=== PATIENT | female | born 1925 | race Caucasian/White ===

== ENCOUNTER 2017-09-04 10:52 | Inpatient (IN) | payer MEDICARE, BC ==
[2017-09-04] MEDS ORDERED: HYDROcodone/APAP 5-325MG 1 EACH TAB PO PRN ×2 (11:48)
--- NOTE | 2017-09-04 12:57 | XR ---
EXAMINATION TYPE: XR Hip Complete RT DATE OF EXAM: 09/04/2017 COMPARISON: NONE HISTORY: Pain TECHNIQUE: 2 views submitted FINDINGS: There is foreshortening of the right femoral neck suspicious for subcapital fracture. Vascular calcif ications noted. Mild diffuse osteopenia. Arthropathy of the hip joint. IMPRESSION: 1. Findings suspicious for subcapital fracture right femoral neck..
[2017-09-04] MEDS ORDERED: ceFAZolin IN SWFI 2 GM/20 ML SYRINGE IVP ONE (13:00)
[2017-09-04 13:30] LABS: Basophils % (A) 1 %; Eosinophils # (A) 0.2 k/uL (0-0.7); Eosinophils % (A) 3 %; HCT 43.4 % (34.0-46.0); HGB 13.3 gm/dL (11.4-16.0); Hypochromasia Slight; Lymphocytes # (A) 1.3 k/uL (1.0-4.8); Lymphocytes % (A) 19 %; MCH 28.9 pg (25.0-35.0); MCHC 30.7 g/dL (31.0-37.0); MCV 94.4 fL (80.0-100.0); Mean Platelet Volume 9.5; Monocytes # (A) 0.4 k/uL (0-1.0); Monocytes % (A) 6 %; Neutrophils # (A) 4.9 k/uL (1.3-7.7); Neutrophils % (A) 70 %; Platelet Count 154 k/uL (150-450); RDW 13.3 % (11.5-15.5)
[2017-09-04 13:43] LABS: Anion Gap 12 mmol/L; Blood Urea Nitrogen 18 mg/dL (7-17); Carbon Dioxide 24 mmol/L (22-30); Chloride 105 mmol/L (98-107); Glucose 94 mg/dL (74-99); Potassium 4.3 mmol/L (3.5-5.1); Sodium 141 mmol/L (137-145)
[2017-09-04 13:53] LABS: Prothrombin Time 9.9 sec (9.0-12.0)
[2017-09-04 14:13] LABS: Partial Thromboplastin Time 21.4 sec (22.0-30.0)
--- NOTE | 2017-09-04 14:23 | P.HPOR ---
History of Present Illness H&P Date: 09/04/17 Chief Complaint: Right hip She states she was carrying out her garbage yesterday when she fell to her right side. She developed right hip and groin pain immediately. The pain has continued. She's had pain with ambulating and weightbearing. She denies radicular symptoms including numbness, tingling. She denies calf pain, fever, chills, chest pain or shortness of breath. She denies LOC, dizziness, headaches , slurred speech or other. Review of Systems All systems: negative Constitutional: Denies chills, Denies fever Eyes: denies blurred vision, denies pain Ears, nose, mouth and throat: Denies headache, Denies sore throat Cardiovascular: Denies chest pain, Denies shortness of breath Respiratory: Denies cough Gastrointestinal: Denies abdominal pain, Denies diarrhea, Denies nausea, Denies vomiting Genitourinary: Denies dysuria, Denies hematuria Musculoskeletal: Denies myalgias Integumentary: Denies pruritus, Denies rash Neurological: Denies numbness, Denies weakness Psychiatric: Denies anxiety, Denies depression Endocrine: Denies fatigue, Denies weight change Past Medical History Past Medical History: Cancer, Osteoarthritis (OA) Additional Past Medical History / Comment(s): Pt denied hyperlipidemia but zocor is on her med list, CHB with pacer, R breast cancer with mastectomy, cervical pain (chronic), arthritis mostly in bilateral hands, PUD with surgical repair, treated in the s for tuberculosis. History of Any Multi-Drug Resistant Organisms: None Reported Past Surgical History: Bladder Surgery, Breast Surgery, Hysterectomy, Pacemaker Additional Past Surgical History / Comment(s): R mastectomy, pacemaker generator change 2011, bilateral cataract removal, exploratory laparotomy with stomach ulcer repair, bladder suspension. Past Anesthesia/Blood Transfusion Reactions: No Reported Reaction Type of Cardiac Device: Permanent Pacemaker Device Placement Date:: unknown insertion date, had gen change in 2011 Smoking Status: Former smoker - Past Family History Mother Family Medical History: No Reported History Additional Family Medical History / Comment(s): Mother was healthy and lived to be 94 yrs old. Father History Unknown: Yes Additional Family Medical History / Comment(s): Father liked to drink beer. Daughter(s) Family Medical History: Cancer Additional Family Medical History / Comment(s): Daughter of lung cancer at the age of 61 yrs. She was a smoker. Son(s) Family Medical History: Myocardial Infarction ([place]) Additional Family Medical History / Comment(s): Son of a [place] at the age of 62 yrs. Medications and Allergies Home Medications Medication Instructions Recorded Confirmed Type Aspirin 81 mg PO DAILY 09/04/17 09/04/17 History Carboxymethylcellulose Sodium 1 drop BOTH EYES DAILY 09/04/17 09/04/17 History [Refresh Tears] Cetirizine HCl [Zyrtec] 10 mg PO DAILY 09/04/17 09/04/17 History Gabapentin [Neurontin] 100 mg PO TID 09/04/17 09/04/17 History Multivitamins, Thera [Multivitamin 1 tab PO DAILY 09/04/17 09/04/17 History (formulary)] Simvastatin [Zocor] 20 mg PO HS 09/04/17 09/04/17 History Allergies Allergy/AdvReac Type Severity Reaction Status Date / Time No Known Allergies Allergy Unverified 09/04/17 11:31 Physical Examination Inspection of the right lower extremity shows no wounds or lacerations. There is no obvious deformity. Range of motion of the hip is not tested due to the hip fracture. Neurovascular status is grossly intact with motor and sensation throughout the right lower extremity. She has painless range of motion of the knee, ankle, foot and toes. The calf is soft and nontender. 2+ dorsalis pedis pulse and less than 2 second capillary refill is present. Results x-rays of the right hip show a subcapital femoral neck fracture with impaction. There is minimal displacement. - Labs Labs: Abnormal Lab Results - Last 24 Hours (Table) 09/04/17 09/04/17 Range/Units 13:06 13:06 MCHC 30.7 L (31.0-37.0) g/dL BUN 18 H (7-17) mg/dL H & H 09/04/17 Range/Units 13:06 Hgb 13.3 (11.4-16.0) gm/dL Hct 43.4 (34.0-46.0) % Result Diagrams: 09/04/17 13:06 09/04/17 13:06 - Diagnostic results Hip x-ray: report reviewed, image reviewed Assessment and Plan (1) Closed right hip fracture Narrative/Plan: We have requested medical clearance with plans for proceeding with surgical intervention, Monday09/05/17 including a right hip hemiarthroplasty. The surgical procedure was reviewed with patient and her family by Dr. Mandujano. The risks and benefits of the surgery were explained. The patient desires to proceed. She has been placed nothing by mouth after midnight. Labs, EKG and chest x-ray also has been ordered. The procedure and consent has been ordered, and boarding time has been confirmed for tomorrow. She'll likely need placement postoperatively. Current Visit: Yes Status: Acute Priority: Medium Code(s): S72.001A - FRACTURE OF UNSP PART OF NECK OF RIGHT FEMUR, INIT SNOMED Code(s): 007089675 Time with Patient: Less than 30
--- NOTE | 2017-09-04 16:33 | XR ---
EXAMINATION TYPE: XR chest 1V portable DATE OF EXAM: 09/04/2017 COMPARISON: Prior chest x-ray 01/19/2012 HISTORY: Preop TECHNIQUE: Single frontal view of the chest is obtained. FINDINGS: Pacemaker is present in the left pectoral region, there are leads in the right atrium and ventricle. Surgical clips are present at the gastroesophageal junction level. No evident airspace dis ease, pneumothorax, or pleural effusion. Technique is apical lordotic and rotated. Cardiac mediastina l silhouette, pulmonary vascularity and barb are stable. The aorta is dense. IMPRESSION: No acute process.
--- NOTE | 2017-09-04 17:35 | ECHOF ---
Referral Reason:LVF MEASUREMENTS -------- HEIGHT: 152.4 cm WEIGHT: 64.9 kg BP: 130/50 IVSd: 1.2 cm (0.6 - 1.1) LVIDd: 3.4 cm (3.9 - 5.3) LVPWd: 1.2 cm (0.6 - 1.1) IVSs: 1.4 cm LVIDs: 3.2 cm LVPWs: 1.4 cm LAESV Index (A-L): 30.32 ml/m Ao Diam: 2.8 cm (2.0 - 3.7) AV Cusp: 1.1 cm (1.5 - 2.6) LA Diam: 3.2 cm (2.7 - 3.8) MV EXCURSION: 14.230 mm (> 18.000) MV EF SLOPE: 129 mm/s (70 - 150) EPSS: 0.3 cm MV E Jimi: 0.57 m/s MV DecT: 253 ms MV A Jimi: 1.22 m/s MV E/A Ratio: 0.46 RAP: 5.00 mmHg RVSP: 50.84 mmHg FINDINGS -------- Paced rhythm. This was a technically adequate study. The left ventricular size is normal. There is mild concentric left ventricular hypertrophy. Overa ll left ventricular systolic function is low-normal with, an EF between 50 - 55 %. The right ventricle is normal in size. LA is midly dilated 29-33ml/m2. The right atrial size is normal. There is mild aortic valve sclerosis. There is no evidence of aortic regurgitation. Mild mitral annular calcification present. Mild mitral regurgitation is present. Mild tricuspid regurgitation present. There is moderate pulmonary hypertension. The right ventric ular systolic pressure, as measured by Doppler, is 50.84mmHg. Trace/mild (physiologic) pulmonic regurgitation. The aortic root size is normal. There is no pericardial effusion. CONCLUSIONS -------- 1. The left ventricular size is normal. 2. There is mild concentric left ventricular hypertrophy. 3. Overall left ventricular systolic function is low-normal with, an EF between 50 - 55 %. 4. LA is midly dilated 29-33ml/m2. 5. There is mild aortic valve sclerosis. 6. Mild mitral annular calcification present. 7. Mild mitral regurgitation is present. 8. Mild tricuspid regurgitation present. 9. There is moderate pulmonary hypertension. 10. The right ventricular systolic pressure, as measured by Doppler, is 50.84mmHg. 11. Trace/mild (physiologic) pulmonic regurgitation. 12. The aortic root size is normal. 13. There is no pericardial effusion. SUPPORT TEAM ASS[employer]: Krystin Jimenez RDCS
[2017-09-04 19:15] LABS: Appearance,Urine Cloudy (Clear); Bacteria,Urine Moderate /hpf; Bilirubin,Urine Negative (Negative); Blood,Urine Negative (Negative); Color,Urine Yellow; Glucose,Urine (UA) Negative (Negative); Hyaline Casts,Urine 1 /lpf (0-2); Ketones,Urine Negative (Negative); Leukocyte Esterase,Urine Negative (Negative); Mucus,Urine Rare /hpf; Nitrite,Urine Negative (Negative); PH, Urine 6.5 (5.0-8.0); Protein,Urine Trace (Negative); RBC,Urine 5 /hpf (0-5); Specific Gravity,Urine 1.012 (1.001-1.035); Squamous Epithelial Cell,Urine 3 /hpf (0-4); WBC,Urine 2 /hpf (0-5)
[2017-09-04] MEDS: DEXTROSE 5%-0.45% NACL 1,000 ML IV SCH (20:22)
--- NOTE | 2017-09-04 20:29 | P.CONS ---
History of Present Illness - Reason for Consult Consult date: 09/04/17 Medical management preop clearance Requesting physician: Lalit Mandujano - Chief Complaint Right hip fracture subcapital - History of Present Illness This is an 89-year-old pleasant lady patient of Dr. Kevin. She has underlying history of hyperlipidemia, right breast cancer with mastectomy, also arthritis, osteoporosis, treated tuberculosis in [id number], pacemaker placement patient is not aware off the reasoning for the pacemaker, known history of PUD with prior gastric ulcer repair admitted as an outpatient direct admit from the office of Dr. Mandujano. Apparently patient was doing well at home until she fell down from 09/03/2017 while getting out the garbage. Patient complained of pain when she fell down on the right hip, she did not seek any ER intervention at that time and saw Dr. Mandujano in the office on 09/04/2016. The daughter works in the office of Dr. Mandujano and when an x-ray was done she had a subcapital hip fracture for which now she is admitted for surgical intervention to include a right hip hemiarthroplasty. Patient is known to have a pacemaker. Patient denies any syncopal event or neurologic event subsequent to the fall, patient is at baseline mental status alert oriented 3 and is present, without any chest pain shortness of breath, patient denies history of PE DVT CHF or CVA in the past patient denies any respiratory distress. [facility], ambulates with a cane, this would be her first fracture. For Cardiac clearance, we've requested cardiology associates to see the patient as she is known to have a pacemaker, EKG is requested, echocardiogram was requested and the chest x-rays requested, Review of Systems Constitutional: Reports as per HPI, Denies anorexia, Denies chills, Denies chronic headaches, Denies chronic pain, Denies daytime sleepiness, Denies fatigue, Denies fever, Denies lethargy, Denies malaise, Denies night sweats, Denies poor appetite, Denies sweats, Denies weakness, Denies weight gain, Denies weight loss Ears, nose, mouth and throat: Reports as per HPI, Denies ant. neck pain, Denies bleeding gums, Denies dental pain, Denies dysphagia, Denies epistaxis, Denies headache, Denies hoarseness, Denies mouth pain, Denies nasal congestion, Denies nasal discharge, Denies neck fullness/pressure, Denies neck lump, Denies nose pain, Denies odynophagia, Denies post-nasal drip, Denies sinus pain, Denies sinus pressure, Denies swelling in mouth, Denies swelling in throat, Denies sore throat, Denies vertigo, Denies voice changes Cardiovascular: Reports as per HPI Respiratory: Reports as per HPI, Denies congestion, Denies cough, Denies cough with sputum, Denies dyspnea, Denies excessive sputum, Denies hemoptysis, Denies home oxygen, Denies pain, Denies pain on inspiration, Denies pleurisy, Denies respiratory infections, Denies sleep apnea, Denies snoring, Denies wheezing Gastrointestinal: Reports as per HPI, Denies abdominal pain, Denies belching, Denies bloating, Denies BRBPR, Denies change in bowel habits, Denies coffee ground emesis, Denies constipation, Denies diarrhea, Denies dyspepsia, Denies early satiety, Denies excessive gas, Denies heartburn, Denies hematemesis, Denies hematochezia, Denies indigestion, Denies jaundice, Denies lactose intolerance, Denies loss of appetite, Denies melena, Denies nausea, Denies vomiting Genitourinary: Reports as per HPI, Denies abnormal vaginal bleeding, Denies decreased libido, Denies difficulty conceiving, Denies difficulty voiding, Denies dysmenorrhea, Denies dyspareunia, Denies dysuria, Denies flank pain, Denies genital sores, Denies hematuria, Denies hot flashes, Denies incomplete emptying, Denies kidney stones, Denies menorrhagia, Denies mixed incontinence, Denies nocturia, Denies pelvic pain, Denies post void dribbling, Denies , Denies prolapse symptoms, Denies stress incontinence, Denies urge incontinence , Denies urgency, Denies urinary frequency, Denies vaginal discharge, Denies vaginal dryness, Denies vaginal itching, Denies vaginal odor Menstruation: Reports as per HPI, Denies amenorrhea, Denies amenorrhea on BC, Denies currently menstrual, Denies cycle < 21 days, Denies cycle > 35 days, Denies cycle variable, Denies menses 1-7 days, Denies menses 8 or > days, Denies menses variable, Denies period heavy, Denies period light, Denies period normal, Denies period spotting, Denies post hysterectomy, Denies postmenopausal , Denies premenarcheal Musculoskeletal: Reports as per HPI, Denies arm numbness/tingling, Denies atrophy, Denies fractures, Denies frequent falls, Denies gait dysfunction, Denies hot joints, Denies leg numbness/tingling, Denies limitation of motion, Denies loss of height, Denies low back pain, Denies morning stiffness, Denies muscle cramps, Denies muscle weakness, Denies myalgias, Denies neck pain, Denies neck stiffness, Denies prior amputations, Denies redness of joints, Denies shooting arm pain, Denies shooting leg pain Integumentary: Reports as per HPI, Denies acne, Denies boils, Denies brittle nails, Denies change in hair/nails, Denies color changes, Denies darkening of skin, Denies depigmentation, Denies dryness, Denies foot/leg ulcers, Denies growths, Denies hirsutism, Denies lesions, Denies onychomycosis, Denies pruritus , Denies rash, Denies sores, Denies striae, Denies unusual bruising, Denies wounds Neurological: Reports as per HPI, Denies aphasia, Denies ataxia, Denies balance difficulties, Denies burning pain, Denies change in mentation, Denies change in smell/taste, Denies change in speech, Denies confusion, Denies convulsions, Denies double vision, Denies gait dysfunction, Denies head injury, Denies headaches, Denies hearing difficulties, Denies lack of coordination, Denies loss of vision, Denies memory loss, Denies migraines, Denies motor disturbance, Denies numbness, Denies paralysis, Denies paresthesias, Denies seizures, Denies sensory deficit, Denies spasticity, Denies syncope, Denies tic, Denies tingling , Denies transient paralysis, Denies tremors, Denies vertigo, Denies weakness, Denies visual changes Psychiatric: Reports as per HPI, Denies anhedonia, Denies anxiety, Denies anxiety attacks, Denies change in appetite, Denies change in libido, Denies change in sleep habits, Denies confusion, Denies depression, Denies difficulty concentrating, Denies disorientation, Denies hallucinations, Denies hopelessness , Denies hypersomnia, Denies insomnia, Denies irritability, Denies memory loss, Denies mood swings, Denies paranoia, Denies sadness/tearfulness, Denies sleep disturbances, Denies suicidal ideation Endocrine: Reports as per HPI Hematologic/Lymphatic: Reports as per HPI Allergic/Immunologic: Reports as per HPI Past Medical History Past Medical History: Cancer, Osteoarthritis (OA) Additional Past Medical History / Comment(s): Pt denied hyperlipidemia but zocor is on her med list, CHB with pacer, R breast cancer with mastectomy, cervical pain (chronic), arthritis mostly in bilateral hands, PUD with surgical repair, treated in the s for tuberculosis. History of Any Multi-Drug Resistant Organisms: None Reported Past Surgical History: Bladder Surgery, Breast Surgery, Hysterectomy, Pacemaker Additional Past Surgical History / Comment(s): R mastectomy, pacemaker generator change 2011, bilateral cataract removal, exploratory laparotomy with stomach ulcer repair, bladder suspension. Past Anesthesia/Blood Transfusion Reactions: No Reported Reaction Type of Cardiac Device: Permanent Pacemaker Device Placement Date:: unknown insertion date, had gen change in 2011 Smoking Status: Former smoker - Past Family History Mother Family Medical History: No Reported History ( 89 secondary to old age) Additional Family Medical History / Comment(s): Mother was healthy and lived to be 94 yrs old. Father History Unknown: Yes Family Medical History: No Reported History (Old age) Additional Family Medical History / Comment(s): Father liked to drink beer. Daughter(s) Family Medical History: Cancer (Lung cancer) Additional Family Medical History / Comment(s): Daughter of lung cancer at the age of 61 yrs. She was a smoker. Son(s) Family Medical History: Myocardial Infarction ([place]) Additional Family Medical History / Comment(s): Son of a [place] at the age of 62 yrs. Medications and Allergies Home Medications Medication Instructions Recorded Confirmed Type Aspirin 81 mg PO DAILY 09/04/17 09/04/17 History Carboxymethylcellulose Sodium 1 drop BOTH EYES DAILY 09/04/17 09/04/17 History [Refresh Tears] Cetirizine HCl [Zyrtec] 10 mg PO DAILY 09/04/17 09/04/17 History Gabapentin [Neurontin] 100 mg PO TID 09/04/17 09/04/17 History Multivitamins, Thera [Multivitamin 1 tab PO DAILY 09/04/17 09/04/17 History (formulary)] Simvastatin [Zocor] 20 mg PO HS 09/04/17 09/04/17 History Allergies Allergy/AdvReac Type Severity Reaction Status Date / Time No Known Allergies Allergy Unverified 09/04/17 11:31 Physical Exam Vitals: Vital Signs Temp Pulse Resp BP Pulse Ox 09/04/17 14:57 98.2 F 94 16 113/71 95 Intake and Output 09/04/17 09/04/17 09/04/17 06:59 14:59 22:59 Intake Total 75 Balance 75 Intake: Intake, IV Titration 75 Amount Dextrose 5%-0.45% NaCl 1, 75 000 ml @ 75 mls/hr IV . [id number] [facility] Rx#:[id number] Other: Weight 64.982 kg Patient Weight 09/05/17 06:59 Weight 64.982 kg - Constitutional General appearance: average body habitus, cooperative, no acute distress - EENT Eyes: anicteric sclerae, EOMI, dentition normal, normal appearance ENT: NA/AT, normal oropharynx - Neck Neck: normal ROM - Respiratory Respiratory: bilateral: CTA, negative: wheezing, prolonged expiration, prolonged inspiration - Cardiovascular Rhythm: regular Heart sounds: normal: S1, S2 Abnormal Heart Sounds: systolic murmur - Gastrointestinal General gastrointestinal: no absent bowel sounds, no decreased bowel sounds, no distended, no hepatomegaly, no hyperactive bowel sounds, normal bowel sounds, no organomegaly, no rigid, no scaphoid, soft, no splenomegaly, no tenderness, no umbilical hernia, no ventral hernia - Integumentary Integumentary: decreased turgor, normal - Neurologic Neurologic: CNII-XII intact - Musculoskeletal Musculoskeletal: strength equal bilaterally (Unable to test gait secondary to right hip fracture) - Psychiatric Psychiatric: A&O x's 3, appropriate affect, intact judgment & insight Results CBC & Chem 7: 09/04/17 13:06 09/04/17 13:06 Labs: Abnormal Lab Results - Last 24 Hours (Table) 09/04/17 09/04/17 09/04/17 Range/Units 13:06 13:06 13:17 MCHC 30.7 L (31.0-37.0) g/dL APTT 21.4 L (22.0-30.0) sec BUN 18 H (7-17) mg/dL Urine Appearance (Clear) Urine Protein (Negative) Urine Bacteria (None) /hpf Urine Mucus (None) /hpf 09/04/17 Range/Units 19:00 MCHC (31.0-37.0) g/dL APTT (22.0-30.0) sec BUN (7-17) mg/dL Urine Appearance Cloudy H (Clear) Urine Protein Trace H (Negative) Urine Bacteria Moderate H (None) /hpf Urine Mucus Rare H (None) /hpf Laboratory Results WBC 7.0 k/uL (3.8-10.6) 09/04/17 13:06 RBC 4.60 m/uL (3.80-5.40) 09/04/17 13:06 Hgb 13.3 gm/dL (11.4-16.0) 09/04/17 13:06 Hct 43.4 % (34.0-46.0) 09/04/17 13:06 MCV 94.4 fL (80.0-100.0) 09/04/17 13:06 MCH 28.9 pg (25.0-35.0) 09/04/17 13:06 MCHC 30.7 g/dL (31.0-37.0) L 09/04/17 13:06 RDW 13.3 % (11.5-15.5) 09/04/17 13:06 Plt Count 154 k/uL (150-450) 09/04/17 13:06 Neutrophils % 70 % 09/04/17 13:06 Lymphocytes % 19 % 09/04/17 13:06 Monocytes % 6 % 09/04/17 13:06 Eosinophils % 3 % 09/04/17 13:06 Basophils % 1 % 09/04/17 13:06 Neutrophils # 4.9 k/uL (1.3-7.7) 09/04/17 13:06 Lymphocytes # 1.3 k/uL (1.0-4.8) 09/04/17 13:06 Monocytes # 0.4 k/uL (0-1.0) 09/04/17 13:06 Eosinophils # 0.2 k/uL (0-0.7) 09/04/17 13:06 Basophils # 0.0 k/uL (0-0.2) 09/04/17 13:06 Hypochromasia Slight 09/04/17 13:06 PT 9.9 sec (9.0-12.0) 09/04/17 13:17 INR 1.0 (<1.2) 09/04/17 13:17 APTT 21.4 sec (22.0-30.0) L 09/04/17 13:17 Sodium 141 mmol/L (137-145) 09/04/17 13:06 Potassium 4.3 mmol/L (3.5-5.1) 09/04/17 13:06 Chloride 105 mmol/L (98-107) 09/04/17 13:06 Carbon Dioxide 24 mmol/L (22-30) 09/04/17 13:06 Anion Gap 12 mmol/L 09/04/17 13:06 BUN 18 mg/dL (7-17) H 09/04/17 13:06 Creatinine 0.76 mg/dL (0.52-1.04) 09/04/17 13:06 Est GFR (MDRD) Af Amer >60 (>60 ml/min/1.73 sqM) 09/04/17 13:06 Est GFR (MDRD) Non-Af >60 (>60 ml/min/1.73 sqM) 09/04/17 13:06 Glucose 94 mg/dL (74-99) 09/04/17 13:06 Calcium 9.0 mg/dL (8.4-10.2) 09/04/17 13:06 NT-Pro-B Natriuret Pep 859 pg/mL 09/04/17 13:06 Urine Color Yellow 09/04/17 19:00 Urine Appearance Cloudy (Clear) H 09/04/17 19:00 Urine pH 6.5 (5.0-8.0) 09/04/17 19:00 Ur Specific [place] 1.012 (1.001-1.035) 09/04/17 19:00 Urine Protein Trace (Negative) H 09/04/17 19:00 Urine Glucose (UA) Negative (Negative) 09/04/17 19:00 Urine Ketones Negative (Negative) 09/04/17 19:00 Urine Blood Negative (Negative) 09/04/17 19:00 Urine Nitrite Negative (Negative) 09/04/17 19:00 Urine Bilirubin Negative (Negative) 09/04/17 19:00 Urine Urobilinogen 2.0 mg/dL (<2.0) 09/04/17 19:00 Ur Leukocyte Esterase Negative (Negative) 09/04/17 19:00 Urine RBC 5 /hpf (0-5) 09/04/17 19:00 Urine WBC 2 /hpf (0-5) 09/04/17 19:00 Ur Squamous Epith Cells 3 /hpf (0-4) 09/04/17 19:00 Urine Bacteria Moderate /hpf (None) H 09/04/17 19:00 Hyaline Casts 1 /lpf (0-2) 09/04/17 19:00 Urine Mucus Rare /hpf (None) H 09/04/17 19:00 Blood Type O Positive 09/04/17 13:22 Blood Type Recheck No 09/04/17 13:22 Antibody Screen NEGATIVE 09/04/17 13:22 Spec Expiration Date 09/07/2017 - 230509/04/17 13:22 Assessment and Plan Plan: 1. Acute right subcapital hip fracture, patient's going to undergo planned surgical intervention for right hemiarthroplasty by Dr. Mandujano once cleared by cardiology, she has an underlying pacemaker for unknown reason, EKG and echocardiogram BNP is requested, should be a class II ASA risk, however EKG is not available for my review, echocardiogram was reviewed without any solid contraindication to proceed with surgery, a separate cardiology recommendation will be made. 2. Known history of breast cancer with right mastectomy 3. Osteoporosis patient would be started on vitamin D to assist with bone: Rate , she would have the formal evaluation as an outpatient for the proposed process treatment 4. Hyperlipidemia without any current statin 5. Prior history of peptic ulcer disease with prior stomach ulcer repair no current symptoms, caution with regards to the use of NSAIDs 6. Prior history off overactive bladder with bladder suspension, urinalysis is negative 7. Prior history of tobacco with no current pulmonary complaints, monitor for any CHF symptoms or COPD symptoms 8. DVT prophylaxis with subcutaneous heparin GI prophylaxis with Pepcid Thank you Dr. Mandujano in allowing us precipitate in the care of your patient. We are going to follow her with you chewing this current hospital stay. Changes to her treatment will be based on her clinical progress, expected discharge to skilled F with four-week anticoagulation post hip replacement
[2017-09-04] MEDS: ARTIFICIAL TEARS-HYPROMELLOSE DROPS 15 ML BTL BOTH EYES SCH (21:55)
[2017-09-04] MEDS: FAMOTIDINE 20 MG TAB PO SCH (21:56)
[2017-09-04] MEDS: GABAPENTIN 100 MG CAP PO SCH (21:56)
[2017-09-04] MEDS: HEPARIN SODIUM,PORCINE 5,000 UNIT/ML 1 ML VIAL SQ SCH (21:56)
[2017-09-04] MEDS: DOCUSATE 100 MG CAP PO SCH (21:56)
[2017-09-05] MEDS: HYDROmorphone 2 MG/ML 1 ML SYRINGE IVP PRN (03:25)
[2017-09-05] MEDS: DEXTROSE 5%-0.45% NACL 1,000 ML IV SCH ×2 (03:31→15:47)
[2017-09-05 08:36] LABS: Basophils % (A) 1 %; Eosinophils # (A) 0.5 k/uL (0-0.7); Eosinophils % (A) 8 %; HCT 39.7 % (34.0-46.0); HGB 12.6 gm/dL (11.4-16.0); Lymphocytes # (A) 1.2 k/uL (1.0-4.8); Lymphocytes % (A) 20 %; MCHC 31.7 g/dL (31.0-37.0); MCV 91.3 fL (80.0-100.0); Mean Platelet Volume 10.8; Monocytes # (A) 0.5 k/uL (0-1.0); Monocytes % (A) 8 %; Neutrophils % (A) 63 %; Platelet Count 159 k/uL (150-450); RBC 4.35 m/uL (3.80-5.40); RDW 14.6 % (11.5-15.5); WBC 6.3 k/uL (3.8-10.6)
[2017-09-05] MEDS: GABAPENTIN 100 MG CAP PO SCH ×3 (08:41→20:56)
[2017-09-05] MEDS: LORATADINE 10 MG TAB PO SCH (08:41)
[2017-09-05] MEDS: FAMOTIDINE 20 MG TAB PO SCH (08:41)
[2017-09-05] MEDS: DOCUSATE 100 MG CAP PO SCH (08:41)
[2017-09-05] MEDS: CHOLECALCIFEROL 1,000 UNIT TAB PO SCH (08:42)
[2017-09-05] MEDS: ARTIFICIAL TEARS-HYPROMELLOSE DROPS 15 ML BTL BOTH EYES SCH (08:43)
[2017-09-05] MEDS: HEPARIN SODIUM,PORCINE 5,000 UNIT/ML 1 ML VIAL SQ SCH ×2 (08:44→20:56)
[2017-09-05 09:00] LABS: Anion Gap 9 mmol/L; Blood Urea Nitrogen 16 mg/dL (7-17); Calcium 8.8 mg/dL (8.4-10.2); Carbon Dioxide 24 mmol/L (22-30); Chloride 109 mmol/L (98-107); Creatine Kinase 62 U/L (30-135); Glucose 115 mg/dL (74-99); Potassium 4.4 mmol/L (3.5-5.1); Sodium 142 mmol/L (137-145)
--- NOTE | 2017-09-05 11:15 | P.CRDCN ---
History of Present Illness Consult date: 09/05/17 History of present illness: Mrs. Truong is a pleasant 89-year-old female with past medical history of permanent pacemaker implantation secondary to complete heart block, osteoarthritis, hypertension and dyslipidemia. She is a former smoker from 1946 -2001. She follows regularly with Dr. Smallwood as an outpatient. We have been asked to see her prior to going for right hip hemiarthroplasty. She apparently had a mechanical fall while taking out her garbage. She denies chest pain, shortness of breath, dizziness, palpitations, nausea, vomiting or diaphoresis prior to falling or afterwards. She seems a bit confused about the fall during my exam. Much of the history is obtained from previous notes. She suffered the fall and presented to her PCP where they did an xray that revealed a fracture of the right subcapital hip fracture. She continues to complain of pain to the right hip and groin region. She is scheduled to undergo surgery this afternoon. She underwent a generator change of her pacemaker in 2011. EKG on arrival reveals a paced rhythm with no acute changes. Echocardiogram was performed and reveals preserved LV function with EF 50-55% with no evidence of hypokinesia, mildly dilated LA, mild aortic valve sclerosis , mild MR, mild TR, moderate pulmonary hypertension wtih RVSP 50.84 mmHg. This is a new finding from former echo performed in the office 2012. Current cardiac medications include aspirin 81 mg daily and simvastatin 20 mg daily. Laboratory data reviewed, hgb 12.6, plt 159, potassium 4.4, proBNP 859. Chest xray is negative for an acute cardiopulmonary process. Review of Systems At the time of my exam: CONSTITUTIONAL: Denies fever. Denies chills. EYES: Denies blurred vision. Denies vision changes. Denies eye pain. EARS, NOSE, MOUTH & THROAT: Denies headache. Denies sore throat. Denies ear pain. CARDIOVASCULAR: Denies chest pain. Denies shortness of breath. Denies orthopnea. Denies PND. Denies palpitations. RESPIRATORY: Denies cough. GASTROINTESTINAL: Denies abdominal pain. Denies diarrhea. Denies constipation. Denies nausea. Denies vomiting. MUSCULOSKELETAL: Complains of pain in the right hip. INTEGUMENTARY: Denies pruitis. Denies rash. NEUROLOGIC: Denies numbness. Denies tingling. Denies weakness. PSYCHIATRIC: Denies anxiety. Denies depression. ENDOCRINE: Denies fatigue. Denies weight change. Denies polydipsia. Denies polyurina. GENITOURINARY: Denies burning, hematuria or urgency with micturation. HEMATOLOGIC: Denies history of anemia. Denies bleeding. Past Medical History Past Medical History: Cancer, Osteoarthritis (OA) Additional Past Medical History / Comment(s): Pt denied hyperlipidemia but zocor is on her med list, CHB with pacer, R breast cancer with mastectomy, cervical pain (chronic), arthritis mostly in bilateral hands, PUD with surgical repair, treated in the s for tuberculosis. History of Any Multi-Drug Resistant Organisms: None Reported Past Surgical History: Bladder Surgery, Breast Surgery, Hysterectomy, Pacemaker Additional Past Surgical History / Comment(s): R mastectomy, pacemaker generator change 2011, bilateral cataract removal, exploratory laparotomy with stomach ulcer repair, bladder suspension. Past Anesthesia/Blood Transfusion Reactions: No Reported Reaction Type of Cardiac Device: Permanent Pacemaker Device Placement Date:: unknown insertion date, had gen change in 2011 Smoking Status: Former smoker - Past Family History Mother Family Medical History: No Reported History ( 89 secondary to old age) Additional Family Medical History / Comment(s): Mother was healthy and lived to be 94 yrs old. Father History Unknown: Yes Family Medical History: No Reported History (Old age) Additional Family Medical History / Comment(s): Father liked to drink beer. Daughter(s) Family Medical History: Cancer (Lung cancer) Additional Family Medical History / Comment(s): Daughter of lung cancer at the age of 61 yrs. She was a smoker. Son(s) Family Medical History: Myocardial Infarction ([place]) Additional Family Medical History / Comment(s): Son of a [place] at the age of 62 yrs. Medications and Allergies Home Medications Medication Instructions Recorded Confirmed Type Aspirin 81 mg PO DAILY 09/04/17 09/04/17 History Carboxymethylcellulose Sodium 1 drop BOTH EYES DAILY 09/04/17 09/04/17 History [Refresh Tears] Cetirizine HCl [Zyrtec] 10 mg PO DAILY 09/04/17 09/04/17 History Gabapentin [Neurontin] 100 mg PO TID 09/04/17 09/04/17 History Multivitamins, Thera [Multivitamin 1 tab PO DAILY 09/04/17 09/04/17 History (formulary)] Simvastatin [Zocor] 20 mg PO HS 09/04/17 09/04/17 History Allergies Allergy/AdvReac Type Severity Reaction Status Date / Time No Known Allergies Allergy Unverified 09/04/17 11:31 Physical Exam Vitals: Vital Signs Temp Pulse Resp BP Pulse Ox 09/05/17 08:40 98.3 F 73 16 113/59 92 L 09/05/17 00:25 98.9 F 85 16 136/78 93 L 09/04/17 20:00 99.2 F 93 18 146/68 09/04/17 14:57 98.2 F 94 16 113/71 95 Intake and Output 09/04/17 09/05/17 09/05/17 22:59 06:59 14:59 Intake Total 600 Balance 600 Intake: Intake, IV Titration 600 Amount Dextrose 5%-0.45% NaCl 1, 600 000 ml @ 75 mls/hr IV . [id number] [facility]EP[facility] Rx#:[id number] Other: # Voids 1 3 Blood pressure 113/59 heart rate 73 afebrile GENERAL: This is a 89-year-old female in no apparent distress at the time of my examination. HEENT: Head is atraumatic, normocephalic. Pupils are equal, round. Sclerae anicteric. Conjunctivae are clear. Mucous membranes of the mouth are moist. Neck is supple. There is no jugular venous distention. Bilateral carotid bruit is heard. LUNGS: Clear to auscultation no wheezes, rales or rhonchi. No chest wall tenderness is noted on palpation or with deep breathing. HEART: Regular rate and rhythm with systolic murmur at the base, no rubs or gallops. S1 and S2 heard. ABDOMEN: Soft, nontender. Bowel sounds are heard. No organomegaly noted. EXTREMITIES: 2+ peripheral pulses with no evidence of peripheral edema and no calf tenderness noted. NEUROLOGIC: Patient is awake, alert and oriented with mild confusion regarding sequence of events surrounding fall. Results 09/05/17 07:36 09/05/17 07:36 Coagulation 09/04/17 Range/Units 13:17 PT 9.9 (9.0-12.0) sec APTT 21.4 L (22.0-30.0) sec CBC 09/04/17 09/05/17 Range/Units 13:06 07:36 WBC 7.0 6.3 (3.8-10.6) k/uL RBC 4.60 4.35 (3.80-5.40) m/uL Hgb 13.3 12.6 (11.4-16.0) gm/dL Hct 43.4 39.7 (34.0-46.0) % Plt Count 154 159 (150-450) k/uL Comprehensive Metabolic Panel 09/04/17 09/05/17 Range/Units 13:06 07:36 Sodium 141 142 (137-145) mmol/L Potassium 4.3 4.4 (3.5-5.1) mmol/L Chloride 105 109 H (98-107) mmol/L Carbon Dioxide 24 24 (22-30) mmol/L BUN 18 H 16 (7-17) mg/dL Creatinine 0.76 0.70 (0.52-1.04) mg/dL Glucose 94 115 H (74-99) mg/dL Calcium 9.0 8.8 (8.4-10.2) mg/dL Current Medications Generic Name Dose Route Start Last Admin Trade Name Freq PRN Reason Stop Dose Admin Hydrocodone Bitart/Acetaminophen 1 each 09/04/17 11:48 [place] 5-325 PO Q4HR PRN Mild Pain Hydrocodone Bitart/Acetaminophen 2 each 09/04/17 11:48 [place] 5-325 PO Q4HR PRN Moderate Pain Artificial Tears 1 drops 09/04/17 20:45 09/05/17 08:43 Artificial Tear Drops BOTH EYES 1 drops DAILY [facility] Administration Cholecalciferol 3,000 unit 09/05/17 12:00 09/05/17 08:42 Vitamin D3 PO Not Given DAILY@1200 [facility] Docusate Sodium 100 mg 09/04/17 20:45 09/05/17 08:41 Colace PO Not Given DAILY [facility] Famotidine 20 mg 09/04/17 21:00 09/05/17 08:41 Pepcid PO Not Given BID [facility] Gabapentin 100 mg 09/04/17 22:00 09/05/17 08:41 Neurontin PO Not Given TID [facility] Heparin Sodium (Porcine) 5,000 unit 09/04/17 21:00 09/05/17 08:44 Heparin SQ Not Given Q12HR [facility] Hydromorphone HCl 0.5 mg 09/04/17 11:48 09/05/17 03:25 Dilaudid IVP 0.5 mg Q4HR PRN Administration Moderate Pain Dextrose/Sodium Chloride 1,000 mls @ 75 mls/hr 09/04/17 12:15 09/05/17 03:31 Dextrose 5%-1/2ns Iv Soln IV Not Given .[id number] [facility] Loratadine 10 mg 09/05/17 09:00 09/05/17 08:41 Claritin PO Not Given DAILY STEP[facility] Intake and Output 09/04/17 09/05/17 09/05/17 22:59 06:59 14:59 Intake Total 600 Balance 600 Intake: Intake, IV Titration 600 Amount Dextrose 5%-0.45% NaCl 1, 600 000 ml @ 75 mls/hr IV . [id number] [facility] Rx#:[id number] Other: # Voids 1 3 09/05/17 07:36 09/05/17 07:36 Assessment and Plan Assessment: ASSESSMENT 1. Fall with subsequent right hip fracture, awaiting right hip josué- arthroplasty this afternoon 2. Permanent pacemaker implantation secondary to complete heart block 3. Dyslipidemia 4. Essential hypertension 5. Peripheral vascular disease 6. History of breast cancer with right mastectomy PLAN 2-D echocardiogram and Doppler study reveals moderate pulmonary hypertension with no clear rationale or previous diagnosis. We will obtain a d-dimer to rule out pulmonary embolism. If D-dimer is negative she is stable to proceed with surgery with moderate risk secondary to co-morbid conditions. We recommend cautious fluid administration as well as optimal blood pressure control. We will continue to follow with her in the post-operative phase. Thank you kindly for this consultation. The above impression and plan of care have been discussed and directed by the signing physician. Cherelle Herrera, nurse practitioner, acting as scribe for signing physician.
[2017-09-05] MEDS ORDERED: RX INFO: IV CONTRAST WAS GIVEN 1 EACH MISC MISCELLANE PRN (11:59)
[2017-09-05] MEDS: ceFAZolin IN SWFI 2 GM/20 ML SYRINGE IVP SCH ×2 (12:57→19:31)
--- NOTE | 2017-09-05 13:09 | P.PN ---
Subjective Progress Note Date: 09/05/17 This is an 89-year-old pleasant lady patient of Dr. Kevin. She has underlying history of hyperlipidemia, right breast cancer with mastectomy, also arthritis, osteoporosis, treated tuberculosis in [id number], pacemaker placement patient is not aware off the reasoning for the pacemaker, known history of PUD with prior gastric ulcer repair admitted as an outpatient direct admit from the office of Dr. Mandujano. Apparently patient was doing well at home until she fell down from 09/03/2017 while getting out the garbage. Patient complained of pain when she fell down on the right hip, she did not seek any ER intervention at that time and saw Dr. Mandujano in the office on 09/04/2016. The daughter works in the office of Dr. Mandujano and when an x-ray was done she had a subcapital hip fracture for which now she is admitted for surgical intervention to include a right hip hemiarthroplasty. Patient is known to have a pacemaker. Patient denies any syncopal event or neurologic event subsequent to the fall, patient is at baseline mental status alert oriented 3 and is present, without any chest pain shortness of breath, patient denies history of PE DVT CHF or CVA in the past patient denies any respiratory distress. [facility], ambulates with a cane, this would be her first fracture. For Cardiac clearance, we've requested cardiology associates to see the patient as she is known to have a pacemaker, EKG is requested, echocardiogram was requested and the chest x-rays requested, 09/05: Echocardiogram reveals EF of 50-55% with mild concentric left ventricular hypertrophy, currently mildly dilated at 29-33, mild aortic valve sclerosis, mitral regurgitation, mild tricuspid regurgitation, moderate pulmonary hypertension. Cardiology has seen the patient and ordered d-dimer which came back elevated at 2.32, followed by CTA of the chest report is pending. Patient is scheduled for surgery this afternoon. She denies any new complaints. Objective - Vital Signs Vital signs: Vital Signs Temp 98.3 F 09/05/17 08:40 Pulse 73 09/05/17 08:40 Resp 16 09/05/17 08:40 BP 113/59 09/05/17 08:40 Pulse Ox 92 L 09/05/17 08:40 Intake & Output 09/04/17 09/05/17 09/05/17 18:59 06:59 18:59 Intake Total 75 600 Balance 75 600 Weight 64.982 kg Intake: Intake, IV Titration 75 600 Amount Dextrose 5%-0.45% NaCl 1, 75 600 000 ml @ 75 mls/hr IV . [id number] [facility] Rx#:[id number] Other: # Voids 3 - Exam General appearance: average body habitus, cooperative, no acute distress - EENT Eyes: anicteric sclerae, EOMI, dentition normal, normal appearance ENT: NA/AT, normal oropharynx - Neck Neck: normal ROM - Respiratory Respiratory: bilateral: CTA, negative: wheezing, prolonged expiration, prolonged inspiration - Cardiovascular Rhythm: regular Heart sounds: normal: S1, S2 Abnormal Heart Sounds: systolic murmur - Gastrointestinal General gastrointestinal: no absent bowel sounds, no decreased bowel sounds, no distended, no hepatomegaly, no hyperactive bowel sounds, normal bowel sounds, no organomegaly, no rigid, no scaphoid, soft, no splenomegaly, no tenderness, no umbilical hernia, no ventral hernia - Integumentary Integumentary: decreased turgor, normal - Neurologic Neurologic: CNII-XII intact - Musculoskeletal Musculoskeletal: strength equal bilaterally (Unable to test gait secondary to right hip fracture) - Psychiatric Psychiatric: A&O x's 3, appropriate affect, intact judgment & insight - Labs CBC & Chem 7: 09/05/17 07:36 09/05/17 07:36 Labs: Abnormal Lab Results - Last 24 Hours (Table) 09/04/17 09/04/17 09/04/17 Range/Units 13:06 13:06 13:17 MCHC 30.7 L (31.0-37.0) g/dL APTT 21.4 L (22.0-30.0) sec Chloride (98-107) mmol/L BUN 18 H (7-17) mg/dL Glucose (74-99) mg/dL Urine Appearance (Clear) Urine Protein (Negative) Urine Bacteria (None) /hpf Urine Mucus (None) /hpf 09/04/17 09/05/17 Range/Units 19:00 07:36 MCHC (31.0-37.0) g/dL APTT (22.0-30.0) sec Chloride 109 H (98-107) mmol/L BUN (7-17) mg/dL Glucose 115 H (74-99) mg/dL Urine Appearance Cloudy H (Clear) Urine Protein Trace H (Negative) Urine Bacteria Moderate H (None) /hpf Urine Mucus Rare H (None) /hpf Assessment and Plan Plan: 1. Acute right subcapital hip fracture, patient's going to undergo planned surgical intervention for right hemiarthroplasty by Dr. Mandujano once cleared by cardiology, she has an underlying pacemaker for unknown reason, EKG and echocardiogram BNP is requested, should be a class II ASA risk, however EKG is not available for my review, echocardiogram was reviewed without any solid contraindication to proceed with surgery, a separate cardiology recommendation will be made. 2. Known history of breast cancer with right mastectomy 3. Osteoporosis patient would be started on vitamin D to assist with bone: Rate , she would have the formal evaluation as an outpatient for the proposed process treatment 4. Hyperlipidemia without any current statin 5. Prior history of peptic ulcer disease with prior stomach ulcer repair no current symptoms, caution with regards to the use of NSAIDs 6. Prior history off overactive bladder with bladder suspension, urinalysis is negative 7. Prior history of tobacco with no current pulmonary complaints, monitor for any CHF symptoms or COPD symptoms 8. DVT prophylaxis with subcutaneous heparin 9. GI prophylaxis with Pepcid 10. Moderate pulmonary hypertension, elevated d-dimer. CTA of the chest pending. Discharge plan: Subacute rehab. Social work updated. Impression and plan of care have been directed as dictated by the signing physician. Daphnie Mariano nurse practitioner acting as scribe for signing physician.
--- NOTE | 2017-09-05 13:17 | CT ---
CT CHEST FOR PULMONARY EMBOLISM. EXAMINATION TYPE: CT angio chest DATE OF EXAM: 09/05/2017 INDICATION: Patient poor historian. Elevated d-dimer. CT DLP: 395 mGycm, Automated exposure control for dose reduction was used. CONTRAST: Patient injected with 100 mL of Omnipaque 350. COMPARISON: NONE TECHNIQUE: CT of the chest is performed on a spiral scan at 2 mm thick sections. Study is performed with intravenous contrast timed for evaluation for pulmonary embolism. This will limit additional po rtions of the evaluation. 3-D MIP images reconstructed by the technologist are reviewed on the compu ter in the coronal and sagittal planes. FINDINGS: No persistent filling defects are evident to suggest an acute pulmonary embolism. r there is a large pretracheal lymph node at the level of the krsi measuring 1.3 cm in transverse d imension. Subcarinal lymph node is likely present measuring 1.4 cm in size. Some right suprahilar liam nopathy is present. Smaller aortopulmonic window lymph nodes are present, a medial lymph node is not enlarged by CT criteria measuring 0.9 cm. Smaller lateral aortopulmonic window lymph nodes are presen t. There appear to be 2 pleural-based nodules in the anterior right lung. Series 5 image 72. The larger of the 2 measures 2.0 x 1.8 cm in size. The second smaller measures 0.9 cm in size. The larger may chaudhari ve wall invasion at the costosternal junction. Internal mammillary chain lymph node should be conside red . The ascending aorta diameter at the level of the main pulmonary artery is 3.0 cm. The main pulmonary artery diameter at the bifurcation is 2.1 cm. There is an irregular ovoid density with irregular margins in the medial right apex measuring 2.4 x 0 .9 cm in size. This extends towards the azygoesophageal recess. Moderately advanced emphysematous delmar nges are present throughout the lung morrison. Some compressive atelectasis or focal pulmonary fibrosis is in the posterior right lung base. There is a mass in the posterior inferior right lung base adjac ent to the pleural margin measuring 2.9 x 1.8 cm in size. This has spiculated margins on lung windows and may be neoplasm. Limited CT section through the upper abdomen are unremarkable. Vascular calcifications within the abd ominal aorta IMPRESSIONS: 1. Mass in the medial right apex. Primary or metastatic lesion could be considered. Scarring is consi dered less likely but within the differential. 2. Multiple enlarged mediastinal lymph nodes present. Some right internal mammary artery chain lymph nodes could be considered. Please see above discussion. 3. Given the patient's right mastectomy. Metastatic breast cancer should also be considered. Recommen d PET CT for additional evaluation. 4. No acute pulmonary embolism.
[2017-09-05] MEDS ORDERED: ceFAZolin IN SWFI 2 GM/20 ML SYRINGE IVP SCH (16:00)
[2017-09-06] MEDS: ceFAZolin IN SWFI 2 GM/20 ML SYRINGE IVP SCH ×3 (03:28→23:03)
[2017-09-06] MEDS: DEXTROSE 5%-0.45% NACL 1,000 ML IV SCH (03:28)
[2017-09-06] MEDS: ARTIFICIAL TEARS-HYPROMELLOSE DROPS 15 ML BTL BOTH EYES SCH (08:29)
[2017-09-06] MEDS: LORATADINE 10 MG TAB PO SCH (08:29)
[2017-09-06] MEDS: GABAPENTIN 100 MG CAP PO SCH ×3 (08:29→23:03)
[2017-09-06] MEDS: HEPARIN SODIUM,PORCINE 5,000 UNIT/ML 1 ML VIAL SQ SCH ×2 (08:29→23:03)
[2017-09-06] MEDS: CHOLECALCIFEROL 1,000 UNIT TAB PO SCH (08:29)
[2017-09-06] MEDS: FAMOTIDINE 20 MG TAB PO SCH (08:29)
[2017-09-06] MEDS: DOCUSATE 100 MG CAP PO SCH (08:29)
--- NOTE | 2017-09-06 11:20 | XR ---
Right femur HISTORY: Hip fracture 2 views of the right femur submitted on 4 images and correlated to right hip 09/04/2017 The patient's findings compatible with subcapital hip fracture again noted in the proximal right femu r. No dislocation. Bone mineralization is reduced. Loss of joint space present in the knee with chond rocalcinosis. IMPRESSION: Stable findings.
[2017-09-06] MEDS ORDERED: IPRATROPIUM-ALBUTEROL 3 ML NEB INHALATION SCH (13:00)
--- NOTE | 2017-09-06 13:02 | P.PN ---
Subjective Progress Note Date: 09/06/17 Principal diagnosis: Right subcapital femur fracture Patient is pleasant 89-year-old female seen at bedside this morning. She was admitted for a right subcapital femur fracture. Surgical intervention was postponed due to an elevated d-dimer and further workup needed for causes of pulmonary hypertension. CT of the chest was performed yesterday. She continues to have right hip pain as expected at the fracture site. She denies any new complaints including numbness or tingling. She has no calf pain, fever , chills, chest pain or shortness of breath. Objective - Vital Signs Vital signs: Vital Signs Temp 98.1 F 09/06/17 07:00 Pulse 80 09/06/17 07:00 Resp 16 09/06/17 07:00 BP 148/82 09/06/17 07:00 Pulse Ox 98 09/06/17 07:00 Intake & Output 09/05/17 09/06/17 09/06/17 18:59 06:59 18:59 Intake Total 240 240 Balance 240 240 Intake: Oral 240 240 Other: Voiding Method Bedpan # Voids 1 2 - Exam Inspection of the right lower extremity is benign. There is no erythema or wounds. There is no bony deformity. Range of motion of the hip is not tested due to the fracture. Neurovascular status is grossly intact with motor and sensation throughout the right lower extremity. Calf is soft and nontender. 2 + dorsalis pedis pulse and less than 2 second capillary refill is present distally. - Constitutional General appearance: Present: no acute distress - Psychiatric Psychiatric: Present: A&O x's 3, appropriate affect, intact judgment & insight - Labs CBC & Chem 7: 09/05/17 07:36 09/05/17 07:36 Labs: Abnormal Lab Results - Last 24 Hours (Table) 09/06/17 Range/Units 06:37 Creatine Kinase 256 H (30-135) U/L Assessment and Plan (1) Closed right hip fracture Narrative/Plan: CT of the chest has shown possible lesion/mass on the right. Radiology has recommended PET/CT scan. We are tentatively planning on proceeding with surgical intervention for her right hip including a right hip hemiarthroplasty tomorrow afternoon 09/07/2017 pending internal medicine and cardiology clearance. She is nothing by mouth after midnight. We will await further recommendations from internal medicine and cardiology.. Current Visit: Yes Status: Acute Priority: Medium Code(s): S72.001A - FRACTURE OF UNSP PART OF NECK OF RIGHT FEMUR, INIT SNOMED Code(s): 237008201 Time with Patient: Less than 30
--- NOTE | 2017-09-06 14:33 | P.CNPUL ---
History of Present Illness Consult date: 09/06/17 Reason for consult: COPD, abnormal CXR/CT Chief complaint: Abnormal CAT scan History of present illness: Ms. Kathy Truong is a pleasant 89-year-old female who was seen evaluated and examined on third floor patient has been admitted into the hospital after a fall found to have a right-sided hip fracture. Patient has been evaluated by cardiovascular services for a preop clearance found to have a moderate pulmonary hypertension a computed tomography scan of the chest was performed to rule out pulmonary embolism was negative for PE however found to have significant pathological finding, I was asked to evaluate this patient further. 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 She lives at home has been fairly symptom free. This patient was while moving her garbage on august trip and fell down and developed severe pain on the right side, a she was evaluated by orthopedic service next day and advised to undergo an x- ray of the hip as was found to have a fracture patient has been admitted into the hospital, patient denies any cough denies any sputum production does have some shortness of breath usually on exertion she denies taking any oxygen at home denies taking any breathing treatments she can walk a block to 2 block without any problem. Patient currently is being planned for open reduction internal fixation for tomorrow by orthopedic service Review of Systems All systems: negative Past Medical History Past Medical History: Cancer, Osteoarthritis (OA) Additional Past Medical History / Comment(s): Pt denied hyperlipidemia but zocor is on her med list, CHB with pacer, R breast cancer with mastectomy, cervical pain (chronic), arthritis mostly in bilateral hands, PUD with surgical repair, treated in the s for tuberculosis. History of Any Multi-Drug Resistant Organisms: None Reported Past Surgical History: Bladder Surgery, Breast Surgery, Hysterectomy, Pacemaker Additional Past Surgical History / Comment(s): R mastectomy, pacemaker generator change 2011, bilateral cataract removal, exploratory laparotomy with stomach ulcer repair, bladder suspension. Past Anesthesia/Blood Transfusion Reactions: No Reported Reaction Type of Cardiac Device: Permanent Pacemaker Device Placement Date:: unknown insertion date, had gen change in 2011 Smoking Status: Former smoker - Past Family History Mother Family Medical History: No Reported History ( 89 secondary to old age) Additional Family Medical History / Comment(s): Mother was healthy and lived to be 94 yrs old. Father History Unknown: Yes Family Medical History: No Reported History (Old age) Additional Family Medical History / Comment(s): Father liked to drink beer. Daughter(s) Family Medical History: Cancer (Lung cancer) Additional Family Medical History / Comment(s): Daughter of lung cancer at the age of 61 yrs. She was a smoker. Son(s) Family Medical History: Myocardial Infarction (MD) Additional Family Medical History / Comment(s): Son of a MD at the age of 62 yrs. Medications and Allergies Home Medications Medication Instructions Recorded Confirmed Type Aspirin 81 mg PO DAILY 09/04/17 09/04/17 History Carboxymethylcellulose Sodium 1 drop BOTH EYES DAILY 09/04/17 09/04/17 History [Refresh Tears] Cetirizine HCl [Zyrtec] 10 mg PO DAILY 09/04/17 09/04/17 History Gabapentin [Neurontin] 100 mg PO TID 09/04/17 09/04/17 History Multivitamins, Thera [Multivitamin 1 tab PO DAILY 09/04/17 09/04/17 History (formulary)] Simvastatin [Zocor] 20 mg PO HS 09/04/17 09/04/17 History Allergies Allergy/AdvReac Type Severity Reaction Status Date / Time No Known Allergies Allergy Unverified 09/04/17 11:31 Physical Exam Vitals: Vital Signs Temp Pulse Pulse Resp BP Pulse Ox 09/06/17 13:44 82 09/06/17 13:36 80 09/06/17 07:00 98.1 F 80 16 148/82 98 09/06/17 00:30 98.1 F 87 16 146/94 92 L 09/05/17 20:00 98.3 F 95 16 126/75 96 09/05/17 15:57 98 F 86 16 122/75 97 Intake and Output 09/05/17 09/06/17 09/06/17 22:59 06:59 14:59 Intake Total 240 240 Balance 240 240 Intake: Oral 240 240 Other: # Voids 1 2 - Constitutional General appearance: average body habitus, cooperative, no acute distress - EENT Eyes: EOMI, PERRLA, normal appearance - Neck Neck: normal ROM Carotids: bilateral: upstroke normal, bruit absent Thyroid: bilateral: normal size - Respiratory Respiratory: bilateral: CTA, negative: diminished, dullness, rales, rhonchi, wheezing, prolonged expiration, prolonged inspiration - Cardiovascular Heart sounds: normal: S1, S2 - Gastrointestinal General gastrointestinal: normal bowel sounds, soft - Neurologic Neurologic: CNII-XII intact - Musculoskeletal Musculoskeletal: gait normal, generalized weakness, strength equal bilaterally - Psychiatric Psychiatric: A&O x's 3, appropriate affect, intact judgment & insight Results - Laboratory Findings CBC and BMP: 09/05/17 07:36 09/05/17 07:36 PT/INR, D-dimer PT 9.9 sec (9.0-12.0) 09/04/17 13:17 INR 1.0 (<1.2) 09/04/17 13:17 D-Dimer 2.32 mg/L FEU (<0.60) H 09/05/17 11:17 Abnormal lab findings: Abnormal Labs 09/04/17 09/04/17 09/04/17 13:06 13:06 13:17 MCHC 30.7 L APTT 21.4 L D-Dimer Chloride BUN 18 H Glucose Creatine Kinase Urine Appearance Urine Protein Urine Bacteria Urine Mucus 09/04/17 09/05/17 09/05/17 19:00 07:36 11:17 MCHC APTT D-Dimer 2.32 H Chloride 109 H BUN Glucose 115 H Creatine Kinase Urine Appearance Cloudy H Urine Protein Trace H Urine Bacteria Moderate H Urine Mucus Rare H 09/06/17 06:37 MCHC APTT D-Dimer Chloride BUN Glucose Creatine Kinase 256 H Urine Appearance Urine Protein Urine Bacteria Urine Mucus - Diagnostic Findings Chest x-ray: report reviewed, image reviewed CT scan - chest: report reviewed, image reviewed (Computed tomography scan of the chest revealed extensive pulmonary emphysema and bullous lung disease, right upper lobe spiculated masslike density/nodule has been seen, some mediastinal lymphadenopathy R lymph node prominence noted as well, anteriorly next to the sternum 2 cm mass and another 1 cm mass next to each other were noted one of them appears to be invading the sternum likely metastatic neoplastic process, the right upper lobe spiculated mass is very difficult to biopsy due to location plus high risk of pneumothorax or anterior thoracic wall mass and anterior pleural-based mass easy to access by CT-guided lung biopsy) Assessment and Plan Assessment: 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 Johns will set her up for CT-guided biopsy after the surgery Maintain patient on DVT and peptic ulcer disease prophylaxis continue supportive care will follow Time with Patient: Greater than 30
--- NOTE | 2017-09-06 14:43 | P.PN ---
Subjective Progress Note Date: 09/06/17 This is an 89-year-old pleasant lady patient of Dr. Kevin. She has underlying history of hyperlipidemia, right breast cancer with mastectomy, also arthritis, osteoporosis, treated tuberculosis in [id number], pacemaker placement patient is not aware off the reasoning for the pacemaker, known history of PUD with prior gastric ulcer repair admitted as an outpatient direct admit from the office of Dr. Mandujano. Apparently patient was doing well at home until she fell down from 09/03/2017 while getting out the garbage. Patient complained of pain when she fell down on the right hip, she did not seek any ER intervention at that time and saw Dr. Mandujano in the office on 09/04/2016. The daughter works in the office of Dr. Mandujano and when an x-ray was done she had a subcapital hip fracture for which now she is admitted for surgical intervention to include a right hip hemiarthroplasty. Patient is known to have a pacemaker. Patient denies any syncopal event or neurologic event subsequent to the fall, patient is at baseline mental status alert oriented 3 and is present, without any chest pain shortness of breath, patient denies history of PE DVT CHF or CVA in the past patient denies any respiratory distress. [facility], ambulates with a cane, this would be her first fracture. For Cardiac clearance, we've requested cardiology associates to see the patient as she is known to have a pacemaker, EKG is requested, echocardiogram was requested and the chest x-rays requested, 09/05: Echocardiogram reveals EF of 50-55% with mild concentric left ventricular hypertrophy, currently mildly dilated at 29-33, mild aortic valve sclerosis, mitral regurgitation, mild tricuspid regurgitation, moderate pulmonary hypertension. Cardiology has seen the patient and ordered d-dimer which came back elevated at 2.32, followed by CTA of the chest report is pending. Patient is scheduled for surgery this afternoon. She denies any new complaints. 09/06: CT shows a mass in the medial right apex. Primary or metastatic lesion could be considered. Multiple enlarged mediastinal lymph nodes present. Small right internal mammary artery chain lymph nodes could be considered. Metastatic breast cancer should be considered. Recommend PET scan. No acute pulmonary embolism. Consult added for Dr. Gaming and patient has been cleared for surgery as she needs a surgery done at this time. He is also recommended a CAT scan guided biopsy to be done during this hospitalization which we will plan for on Monday. Patient is scheduled for hip surgery tomorrow. Incentive spirometry and nebulizer treatments added. Objective - Vital Signs Vital signs: Vital Signs Temp 98.1 F 09/06/17 07:00 Pulse 80 09/06/17 07:00 Resp 16 09/06/17 07:00 BP 148/82 09/06/17 07:00 Pulse Ox 98 09/06/17 07:00 Intake & Output 09/05/17 09/06/17 09/06/17 18:59 06:59 18:59 Intake Total 240 240 Balance 240 240 Intake: Oral 240 240 Other: Voiding Method Bedpan # Voids 1 2 - Exam General appearance: average body habitus, cooperative, no acute distress - EENT Eyes: anicteric sclerae, EOMI, dentition normal, normal appearance ENT: NA/AT, normal oropharynx - Neck Neck: normal ROM - Respiratory Respiratory: bilateral: CTA, negative: wheezing, prolonged expiration, prolonged inspiration - Cardiovascular Rhythm: regular Heart sounds: normal: S1, S2 Abnormal Heart Sounds: systolic murmur - Gastrointestinal General gastrointestinal: no absent bowel sounds, no decreased bowel sounds, no distended, no hepatomegaly, no hyperactive bowel sounds, normal bowel sounds, no organomegaly, no rigid, no scaphoid, soft, no splenomegaly, no tenderness, no umbilical hernia, no ventral hernia - Integumentary Integumentary: decreased turgor, normal - Neurologic Neurologic: CNII-XII intact - Musculoskeletal Musculoskeletal: strength equal bilaterally (Unable to test gait secondary to right hip fracture) - Psychiatric Psychiatric: A&O x's 3, appropriate affect, intact judgment & insight - Labs CBC & Chem 7: 09/05/17 07:36 09/05/17 07:36 Labs: Abnormal Lab Results - Last 24 Hours (Table) 09/05/17 09/06/17 Range/Units 11:17 06:37 D-Dimer 2.32 H (<0.60) mg/L FEU Creatine Kinase 256 H (30-135) U/L Assessment and Plan Plan: 1. Acute right subcapital hip fracture, patient's going to undergo planned surgical intervention for right hemiarthroplasty by Dr. Mandujano once cleared by cardiology, she has an underlying pacemaker for unknown reason, EKG and echocardiogram BNP is requested, should be a class II ASA risk, however EKG is not available for my review, echocardiogram was reviewed without any solid contraindication to proceed with surgery, a separate cardiology recommendation will be made. 2. Known history of breast cancer with right mastectomy 3. Osteoporosis patient would be started on vitamin D to assist with bone: Rate , she would have the formal evaluation as an outpatient for the proposed process treatment 4. Hyperlipidemia without any current statin 5. Prior history of peptic ulcer disease with prior stomach ulcer repair no current symptoms, caution with regards to the use of NSAIDs 6. Prior history off overactive bladder with bladder suspension, urinalysis is negative 7. Prior history of tobacco with no current pulmonary complaints, monitor for any CHF symptoms or COPD symptoms 8. DVT prophylaxis with subcutaneous heparin 9. GI prophylaxis with Pepcid 10. Moderate pulmonary hypertension, with CAT scan finding large mass in the medial right apex invading the chest wall. Consult with Dr. Amberly beck. He has cleared the patient for surgery scheduled for tomorrow on the right hip. He has recommended CAT scan guided biopsy during this admission. Discharge plan: Subacute rehab. Social work updated. Impression and plan of care have been directed as dictated by the signing physician. Daphnie Mariano nurse practitioner acting as scribe for signing physician.
--- NOTE | 2017-09-06 14:53 | P.PN ---
Subjective Progress Note Date: 09/06/17 Mrs. Truong is a pleasant 89-year-old female with past medical history of permanent pacemaker implantation secondary to complete heart block, osteoarthritis, hypertension and dyslipidemia. She is a former smoker from 1946 -2001. She follows regularly with Dr. Smallwood as an outpatient. We have been asked to see her prior to going for right hip hemiarthroplasty. She apparently had a mechanical fall while taking out her garbage. She denies chest pain, shortness of breath, dizziness, palpitations, nausea, vomiting or diaphoresis prior to falling or afterwards. She seems a bit confused about the fall during my exam. Much of the history is obtained from previous notes. She suffered the fall and presented to her PCP where they did an xray that revealed a fracture of the right subcapital hip fracture. She continues to complain of pain to the right hip and groin region. She is scheduled to undergo surgery this afternoon. She underwent a generator change of her pacemaker in 2011. EKG on arrival reveals a paced rhythm with no acute changes. Echocardiogram was performed and reveals preserved LV function with EF 50-55% with no evidence of hypokinesia, mildly dilated LA, mild aortic valve sclerosis , mild MR, mild TR, moderate pulmonary hypertension wtih RVSP 50.84 mmHg. This is a new finding from former echo performed in the office 2012. Current cardiac medications include aspirin 81 mg daily and simvastatin 20 mg daily. Laboratory data reviewed, hgb 12.6, plt 159, potassium 4.4, proBNP 859. Chest xray is negative for an acute cardiopulmonary process. 09/06/2017 Mrs. Truong is being seen today in follow-up from initial consultation for cardiac clearance for right hip hemiarthroplasty. We ordered at CT angio yesterday to evaluate for possible PE secondary to elevated d-dimer. CTA reveals mass in the medial right apex indicative of possible metastasis possibly secondary to history of breast cancer. Negative for PE. Objective - Vital Signs Vital signs: Vital Signs Temp 98.1 F 09/06/17 07:00 Pulse 82 09/06/17 13:44 Resp 16 09/06/17 07:00 BP 148/82 09/06/17 07:00 Pulse Ox 98 09/06/17 07:00 Intake & Output 09/05/17 09/06/17 09/06/17 18:59 06:59 18:59 Intake Total 240 240 Balance 240 240 Intake: Oral 240 240 Other: Voiding Method Bedpan # Voids 1 2 - Exam Blood pressure 148/82 heart rate 80 afebrile GENERAL: Well-appearing, well-nourished and in no acute distress. NECK: Supple without JVD or thyromegaly. LUNGS: Breath sounds clear to auscultation bilaterally. Respiration equal and unlabored. No wheezes, rales or rhonchi. HEART: Regular rate and rhythm with systolic ejection murmur at the base, no rubs or gallops. S1 and S2 heard. EXTREMITIES: No edema. No clubbing or cyanosis. Peripheral pulses intact and strong. - Labs CBC & Chem 7: 09/05/17 07:36 09/05/17 07:36 Labs: Abnormal Lab Results - Last 24 Hours (Table) 09/06/17 Range/Units 06:37 Creatine Kinase 256 H (30-135) U/L Assessment and Plan Assessment: ASSESSMENT 1. Fall with subsequent right hip fracture, awaiting right hip josué- arthroplasty this afternoon 2. Permanent pacemaker implantation secondary to complete heart block 3. Dyslipidemia 4. Essential hypertension 5. Peripheral vascular disease 6. History of breast cancer with right mastectomy 7. Chest mass indicative of possible metastasis, new diagnosis 8. 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 Truong remains a moderate risk for surgery. Cautious fluid administration as well as optimal blood pressure control advised. We will continue to see her in the post-operative phase. The above impression and plan of care have been discussed and directed by the signing physician. Cherelle Herrera, nurse practitioner, acting as scribe for signing physician.
[2017-09-06] MEDS: IPRATROPIUM-ALBUTEROL 3 ML NEB INHALATION SCH ×2 (15:43→20:00)
[2017-09-06] MEDS: BUDESONIDE 0.5 MG/2 ML NEBU INHALATION SCH (20:00)
[2017-09-07] MEDS: DEXTROSE 5%-0.45% NACL 1,000 ML IV SCH ×2 (01:57→04:35)
[2017-09-07] MEDS: HYDROmorphone 2 MG/ML 1 ML SYRINGE IVP PRN ×3 (04:39→23:36)
[2017-09-07] MEDS: IPRATROPIUM-ALBUTEROL 3 ML NEB INHALATION SCH ×4 (07:31→19:15)
[2017-09-07] MEDS: BUDESONIDE 0.5 MG/2 ML NEBU INHALATION SCH ×2 (07:31→19:15)
[2017-09-07] MEDS: HEPARIN SODIUM,PORCINE 5,000 UNIT/ML 1 ML VIAL SQ SCH ×2 (08:27→23:30)
[2017-09-07] MEDS: FAMOTIDINE 20 MG TAB PO SCH (08:27)
[2017-09-07] MEDS: DOCUSATE 100 MG CAP PO SCH (08:27)
[2017-09-07] MEDS: GABAPENTIN 100 MG CAP PO SCH ×3 (08:27→20:08)
[2017-09-07] MEDS: LORATADINE 10 MG TAB PO SCH (08:28)
[2017-09-07] MEDS: CHOLECALCIFEROL 1,000 UNIT TAB PO SCH (08:28)
[2017-09-07] MEDS: ARTIFICIAL TEARS-HYPROMELLOSE DROPS 15 ML BTL BOTH EYES SCH (08:29)
--- NOTE | 2017-09-07 09:49 | P.PN ---
Subjective Progress Note Date: 09/07/17 Principal diagnosis: Multiple lung masses likely neoplastic process, status post fall with right hip fracture, history of complete heart block status post permanent pacemaker, history of breast cancer status post therapy history of TB in the remote past status post treatment 09/07/2017, patient seen eval reexamined during the rounds she is awake and alert she is nothing by mouth for right hip arthroplasty later on today she is in good spirits breathing comfortably denies any chest pain denies any sputum production she is tolerating breathing treatments well Objective - Vital Signs Vital signs: Vital Signs Temp 98.4 F 09/07/17 06:04 Pulse 88 09/07/17 07:41 Resp 16 09/07/17 06:46 BP 156/81 09/07/17 06:04 Pulse Ox 94 L 09/07/17 07:32 Intake & Output 09/06/17 09/07/17 09/07/17 18:59 06:59 18:59 Intake Total 840 600 Balance 840 600 Intake: Intake, IV Titration 600 600 Amount Dextrose 5%-0.45% NaCl 1, 600 600 000 ml @ 75 mls/hr IV . [id number] [facility] Rx#:[id number] Oral 240 Other: Voiding Method Bedpan # Voids 1 - Exam - Constitutional General appearance: average body habitus, cooperative, no acute distress - EENT Eyes: EOMI, PERRLA, normal appearance - Neck Neck: normal ROM Carotids: bilateral: upstroke normal, bruit absent Thyroid: bilateral: normal size - Respiratory Respiratory: bilateral: CTA, negative: diminished, dullness, rales, rhonchi, wheezing, prolonged expiration, prolonged inspiration - Cardiovascular Heart sounds: normal: S1, S2 - Gastrointestinal General gastrointestinal: normal bowel sounds, soft - Neurologic Neurologic: CNII-XII intact - Musculoskeletal Musculoskeletal: gait normal, generalized weakness, strength equal bilaterally, however cannot move her right lower extremity which is externally rotated painful to move - Psychiatric Psychiatric: A&O x's 3, appropriate affect, intact judgment & insight - Labs CBC & Chem 7: 09/05/17 07:36 09/05/17 07:36 Assessment and Plan Assessment: 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 Moderate pulmonary hypertension likely related to above Right upper lobe spiculated nodular density/mass likely neoplastic process Right anterior thoracic wall/pleural-based 2 mass with invasion to the chest wall History of breast cancer Right-sided hip fracture History of remote TB back in 60s treated Plan: We will contained patient on breathing treatments May proceed with a right hip surgery as without patient would be incapacitated and bed bound with high risk of more complication amount the other hand patient does carry some risk more than usual with the surgery from pulmonary standpoint For evaluation of lung mass as discussed with nurse practitioner with Dr. Johns will set her up for CT-guided biopsy after the surgery, it depends upon the postoperative course of the patient if safely can be performed while she is in the hospital proceed with that otherwise will consider doing an a PET scan and a CT on outpatient basis Maintain patient on DVT and peptic ulcer disease prophylaxis continue supportive care will follow Time with Patient: Greater than 30
[2017-09-07] MEDS ORDERED: IV FLUID CONTINUATION 1,000 ML IV ONE (13:03)
--- NOTE | 2017-09-07 13:18 | P.PN ---
Subjective Progress Note Date: 09/07/17 This is an 89-year-old pleasant lady patient of Dr. Kevin. She has underlying history of hyperlipidemia, right breast cancer with mastectomy, also arthritis, osteoporosis, treated tuberculosis in [id number], pacemaker placement patient is not aware off the reasoning for the pacemaker, known history of PUD with prior gastric ulcer repair admitted as an outpatient direct admit from the office of Dr. Mandujano. Apparently patient was doing well at home until she fell down from 09/03/2017 while getting out the garbage. Patient complained of pain when she fell down on the right hip, she did not seek any ER intervention at that time and saw Dr. Mandujano in the office on 09/04/2016. The daughter works in the office of Dr. Mandujano and when an x-ray was done she had a subcapital hip fracture for which now she is admitted for surgical intervention to include a right hip hemiarthroplasty. Patient is known to have a pacemaker. Patient denies any syncopal event or neurologic event subsequent to the fall, patient is at baseline mental status alert oriented 3 and is present, without any chest pain shortness of breath, patient denies history of PE DVT CHF or CVA in the past patient denies any respiratory distress. [facility] ambulates with a cane, this would be her first fracture. For Cardiac clearance, we've requested cardiology associates to see the patient as she is known to have a pacemaker, EKG is requested, echocardiogram was requested and the chest x-rays requested, 09/05: Echocardiogram reveals EF of 50-55% with mild concentric left ventricular hypertrophy, currently mildly dilated at 29-33, mild aortic valve sclerosis, mitral regurgitation, mild tricuspid regurgitation, moderate pulmonary hypertension. Cardiology has seen the patient and ordered d-dimer which came back elevated at 2.32, followed by CTA of the chest report is pending. Patient is scheduled for surgery this afternoon. She denies any new complaints. 09/06: CT shows a mass in the medial right apex. Primary or metastatic lesion could be considered. Multiple enlarged mediastinal lymph nodes present. Small right internal mammary artery chain lymph nodes could be considered. Metastatic breast cancer should be considered. Recommend PET scan. No acute pulmonary embolism. Consult added for Dr. Gaming and patient has been cleared for surgery as she needs a surgery done at this time. He is also recommended a CAT scan guided biopsy to be done during this hospitalization which we will plan for on Monday. Patient is scheduled for hip surgery tomorrow. Incentive spirometry and nebulizer treatments added. 09/07: Patient is scheduled for surgery today. Patient is agreeable to undergo CAT scan biopsy of the lung tomorrow which will be scheduled. She may be ready for discharge to [facility] on Monday. No new complaints. Breathing status is stable. Family members are at the bedside and updated. Objective - Vital Signs Vital signs: Vital Signs Temp 99.7 F H 09/07/17 13:04 Pulse 90 09/07/17 13:04 Resp 18 09/07/17 13:04 BP 140/62 09/07/17 13:04 Pulse Ox 96 09/07/17 13:04 Intake & Output 09/06/17 09/07/17 09/07/17 18:59 06:59 18:59 Intake Total 840 600 Balance 840 600 Intake: Intake, IV Titration 600 600 Amount Dextrose 5%-0.45% NaCl 1, 600 600 000 ml @ 75 mls/hr IV . [id number] [facility] Rx#:[id number] Oral 240 Other: Voiding Method Bedpan # Voids 1 1 - Exam General appearance: average body habitus, cooperative, no acute distress - EENT Eyes: anicteric sclerae, EOMI, dentition normal, normal appearance ENT: NA/AT, normal oropharynx - Neck Neck: normal ROM - Respiratory Respiratory: bilateral: CTA, negative: wheezing, prolonged expiration, prolonged inspiration - Cardiovascular Rhythm: regular Heart sounds: normal: S1, S2 Abnormal Heart Sounds: systolic murmur - Gastrointestinal General gastrointestinal: no absent bowel sounds, no decreased bowel sounds, no distended, no hepatomegaly, no hyperactive bowel sounds, normal bowel sounds, no organomegaly, no rigid, no scaphoid, soft, no splenomegaly, no tenderness, no umbilical hernia, no ventral hernia - Integumentary Integumentary: decreased turgor, normal - Neurologic Neurologic: CNII-XII intact - Musculoskeletal Musculoskeletal: strength equal bilaterally (Unable to test gait secondary to right hip fracture) - Psychiatric Psychiatric: A&O x's 3, appropriate affect, intact judgment & insight - Labs CBC & Chem 7: 09/05/17 07:36 09/05/17 07:36 Assessment and Plan Plan: 1. Acute right subcapital hip fracture, patient's going to undergo planned surgical intervention for right hemiarthroplasty by Dr. Mandujano once cleared by cardiology, she has an underlying pacemaker for unknown reason, EKG and echocardiogram BNP is requested, should be a class II ASA risk, however EKG is not available for my review, echocardiogram was reviewed without any solid contraindication to proceed with surgery, a separate cardiology recommendation will be made. 2. Known history of breast cancer with right mastectomy 3. Osteoporosis patient would be started on vitamin D to assist with bone: Rate , she would have the formal evaluation as an outpatient for the proposed process treatment 4. Hyperlipidemia without any current statin 5. Prior history of peptic ulcer disease with prior stomach ulcer repair no current symptoms, caution with regards to the use of NSAIDs 6. Prior history off overactive bladder with bladder suspension, urinalysis is negative 7. Prior history of tobacco with no current pulmonary complaints, monitor for any CHF symptoms or COPD symptoms 8. DVT prophylaxis with subcutaneous heparin 9. GI prophylaxis with Pepcid 10. Moderate pulmonary hypertension, with CAT scan finding large mass in the medial right apex invading the chest wall with probable stage IV cancer, questionable source with history of breast cancer. Consult with Dr. Amberly beck. He has cleared the patient for surgery scheduled for tomorrow on the right hip. CAT scan guided biopsy tomorrow. Discharge plan: Most likely [place] on Monday. Impression and plan of care have been directed as dictated by the signing physician. Daphnie Mariano nurse practitioner acting as scribe for signing physician.
[2017-09-07] MEDS ORDERED: ONDANSETRON 4 MG/2 ML VIAL IVP ONE (13:35)
[2017-09-07] MEDS ORDERED: MIDAZOLAM 2 MG/2 ML VIAL ONE (14:07)
[2017-09-07] MEDS ORDERED: KETAMINE 10 MG/ML 20 ML VIAL ONE (14:07)
[2017-09-07] MEDS ORDERED: PROPOFOL 10 MG/ML 20 ML VIAL IV ONE (14:07)
[2017-09-07] MEDS ORDERED: PHENYLEPHRINE-0.9% NACL SYG 1 MG/10 ML SYRINGE ONE (14:07)
[2017-09-07] MEDS ORDERED: ceFAZolin 3,000 MG in SODIUM CHLORIDE 0.9% IRRIGATIO 3,000 ML IRRIGATION ONE (14:44)
[2017-09-07] MEDS ORDERED: LACTATED RINGERS 1,000 ML IV ONE (15:43)
[2017-09-07] MEDS ORDERED: DIAZEPAM 5 MG TAB PO PRN (15:44)
[2017-09-07] MEDS ORDERED: ONDANSETRON 4 MG/2 ML VIAL IVP PRN (15:44)
[2017-09-07] MEDS ORDERED: TEMAZEPAM 15 MG CAP PO PRN (15:44)
[2017-09-07] MEDS ORDERED: ACETAMINOPHEN TAB 325 MG TAB PO PRN (15:44)
[2017-09-07] MEDS ORDERED: hydrOXYzine PAMOATE 25 MG CAP PO PRN (15:44)
[2017-09-07] MEDS ORDERED: NALOXONE 0.4 MG/ML 1 ML VIAL IV PRN (15:44)
[2017-09-07] MEDS ORDERED: HYDROmorphone 2 MG/ML 1 ML SYRINGE IVP PRN ×2 (15:44)
[2017-09-07] MEDS ORDERED: MAGNESIUM HYDROXIDE 2,400 MG/10 ML CUP PO PRN (15:44)
--- NOTE | 2017-09-07 16:07 | XR ---
EXAMINATION TYPE: XR Hip Limited RT DATE OF EXAM: 09/07/2017 CLINICAL HISTORY: Postoperative evaluation TECHNIQUE: Single portable view of the right hip was submitted. FINDINGS: Noted are changes of right femoral hemiarthroplasty with femoral components appearing well seated. Alignment is anatomic. Postsurgical soft tissue changes are evident. IMPRESSION: Satisfactory postoperative alignment
[2017-09-07] MEDS: MEPERIDINE 50 MG/ML SYRINGE IVP ONE ×3 (16:10→16:50)
[2017-09-07] MEDS ORDERED: WARFARIN 2.5 MG TAB PO ONE (18:00)
--- NOTE | 2017-09-07 19:28 | OP ---
OPERATIVE REPORT DATE OF PROCEDURE: 09/07/2017 PREOPERATIVE DIAGNOSIS: Right femoral neck fracture. POSTOPERATIVE DIAGNOSIS: Right femoral neck fracture. PROCEDURE: Right hip hemiarthroplasty. SURGEON: Lalit Mandujano MD SLIDE FASTENER REPAIRER: Mikey Parry PA-C. ANESTHESIA: Spinal with sedation. ESTIMATED BLOOD LOSS: 150 mL. COMPLICATIONS: None apparent. DRAINS: None. DISPOSITION: Postanesthesia Care Unit. INDICATIONS: Kathy is a very pleasant 89-year-old female who fell last Monday. She stayed at home for the next 2 days and then initially presented to my office on Monday. Workup, including x-rays at my office, revealed an impacted femoral neck fracture. She was then admitted to the hospital from my office. She was then seen by the medical and cardiology service. There was concern about pulmonary hypertension. A CT scan was ultimately taken of the lungs, and a pulmonary mass was found. Kathy does have a history of breast cancer, status post mastectomy. She was then worked up and cleared for surgical intervention by the medical and cardiology services. She is an independent ambulator. Discussion was had with the family. The decision was made to go forward with right hip hemiarthroplasty. The risks were explained to the patient and family in detail. These risks include but are not limited to risk of infection, nerve damage, bleeding, pain, and a risk of deep vein thrombosis which could lead to fatal pulmonary embolism. All of Kathy's questions with regards to the risks of the procedure were answered to her satisfaction. Appropriate informed consent was obtained. DESCRIPTION OF PROCEDURE: Patient was identified in the preoperative holding area. Surgical site was marked by both the patient and myself. She was given 2 g of Ancef IV for prophylactic purposes. She was then transferred to the operative suite. She was placed supine on the operating room table. A spinal anesthetic was then administered and dosed per the anesthesia department without apparent complication. She was then placed in the left lateral decubitus position and well padded in preparation for surgery. Great care was taken to pad the left leg, and a well-padded axillary roll was placed. The patient's right lower extremity then prepped and draped in the usual sterile fashion. A standard surgical pause was undertaken to ensure that we were operating on the correct site and that appropriate preoperative antibiotics had been given. All staff in the room were in agreement and we proceeded. The outlines of the greater trochanter were marked with a surgical pen. The tip of the greater trochanter was marked. An approximate 10 to 12 cm incision extending over the tip of the greater trochanter in line with the femur was then marked with the surgical pen. Incision was then made with a 10-blade scalpel. Dissection was carried down sharply to the tensor fascia. Hemostasis was achieved with electrocautery. The tensor fascia was then incised in line with the incision. A Charnley retractor was then placed. This exposed the underlying gluteus medius tendon. The raphe between the anterior one third and middle one third of the gluteus medius muscle was identified. I then made an incision with the Bovie and within that raphe an anterolateral approach was then done to the hip. This was Hardinge type approach. The gluteus medius, minimus and anterior capsule were then taken off of the greater trochanter in a sleeve- type fashion. This exposed the femoral neck fracture. The fracture was displaced. The femoral neck was then delivered out of the wound. I then freshened the femoral neck cut with a reciprocating saw. The habematolel femoral head was then removed with a corkscrew. The acetabulum was inspected. The acetabular cartilage was in fair condition. No evidence of fracture. The habematolel femoral head was sized. A size 45 trial head was then placed in the acetabulum. It had a good fit. The hip was then flexed and externally rotated. This delivered the proximal femur. I used the box maker to enter the proximal femur. The starting reamer was then placed down the canal. Great care was taken to lateralize while reaming. I reamed up to a size 10. I then broached the canal. I started with a size 7 broach and increased up to a size 10 broach. I had an excellent press-fit with a 10 size broach. The calcar planer was then utilized. I then started with a -3 neck and trialed the hip. I then trialed with a standard neck. The standard neck had excellent tension. The leg lengths were approximately equal. The hip was stable throughout a full range of motion. There was very minimal shuck. The hip was then very carefully dislocated again. The trial components were removed. The representatives opened a Biomet Bimetric collared size 10 stem, a standard-length neck and a 45 monopolar head. The stem was then impacted in approximately 10 to15 degrees of anteversion. The standard neck and head was assembled on the back table and then was impacted onto the Gonzalez taper of the stem. The hip was then reduced. Again it was stable throughout a full range of motion. There was very minimal shuck. The leg lengths were approximately equal. At this point I proceeded with closure. The wound was thoroughly irrigated with sterile saline solution with antibiotic added. The gluteus medius, minimus and the anterior capsule were repaired to the greater tuberosity with #5 Ethibond interrupted suture. The raphe between the anterior one third and middle one third of the gluteus medius was repaired with 0 Vicryl interrupted suture. Again the wound was thoroughly irrigated with antibiotic-impregnated saline solution via pulse lavage. The tensor fascia was then closed with running #2 Quill suture. Subcutaneous tissue was closed with 2-0 Vicryl interrupted suture. The skin was closed with running 3-0 Quill suture. Dermabond was then applied to the incision. All sponge and needle counts were deemed correct prior to closure. The patient tolerated the procedure without apparent complication. A hip abductor pillow was placed between the legs. She was then transferred to the recovery room in stable condition. MMODL / IJN: [id number] /
[2017-09-07] MEDS: ceFAZolin IN SWFI 2 GM/20 ML SYRINGE IVP SCH ×2 (19:29→23:30)
[2017-09-07] MEDS: LACTATED RINGERS 1,000 ML IV SCH (19:29)
[2017-09-07] MEDS: SENNOSIDES-DOCUSATE SODIUM 1 EACH TAB PO SCH (20:08)
[2017-09-08] MEDS: LACTATED RINGERS 1,000 ML IV SCH ×2 (05:01→18:50)
[2017-09-08 07:08] LABS: Basophils % (A) 0 %; Eosinophils # (A) 0.1 k/uL (0-0.7); Eosinophils % (A) 1 %; HCT 34.7 % (34.0-46.0); Hypochromasia Slight; Lymphocytes # (A) 0.7 k/uL (1.0-4.8); Lymphocytes % (A) 14 %; MCH 28.6 pg (25.0-35.0); MCHC 31.6 g/dL (31.0-37.0); MCV 90.4 fL (80.0-100.0); Mean Platelet Volume 10.1; Monocytes # (A) 0.5 k/uL (0-1.0); Monocytes % (A) 9 %; Neutrophils # (A) 3.8 k/uL (1.3-7.7); Neutrophils % (A) 73 %; Platelet Count 166 k/uL (150-450); RBC 3.84 m/uL (3.80-5.40); RDW 14.2 % (11.5-15.5); WBC 5.2 k/uL (3.8-10.6)
[2017-09-08 07:18] LABS: Prothrombin Time 9.5 sec (9.0-12.0)
[2017-09-08] MEDS: BUDESONIDE 0.5 MG/2 ML NEBU INHALATION SCH ×2 (08:03→20:18)
[2017-09-08] MEDS: IPRATROPIUM-ALBUTEROL 3 ML NEB INHALATION SCH ×4 (08:03→20:18)
[2017-09-08] MEDS: HEPARIN SODIUM,PORCINE 5,000 UNIT/ML 1 ML VIAL SQ SCH ×2 (08:34→21:01)
[2017-09-08] MEDS: DOCUSATE 100 MG CAP PO SCH (08:43)
[2017-09-08] MEDS: GABAPENTIN 100 MG CAP PO SCH ×3 (08:43→21:11)
[2017-09-08] MEDS: LORATADINE 10 MG TAB PO SCH (08:43)
[2017-09-08] MEDS: ceFAZolin IN SWFI 2 GM/20 ML SYRINGE IVP SCH (08:43)
[2017-09-08] MEDS: ARTIFICIAL TEARS-HYPROMELLOSE DROPS 15 ML BTL BOTH EYES SCH (08:43)
[2017-09-08] MEDS: FAMOTIDINE 20 MG TAB PO SCH (08:43)
[2017-09-08] MEDS ORDERED: HYDROcodone/APAP 5-325MG 1 EACH TAB PO PRN (08:53)
[2017-09-08] MEDS: HYDROcodone/APAP 5-325MG 1 EACH TAB PO PRN ×3 (09:03→17:30)
--- NOTE | 2017-09-08 09:59 | P.PN ---
Subjective Progress Note Date: 09/08/17 Principal diagnosis: Right subcapital femur fracture Patient is pleasant 89-year-old female seen at bedside this morning. She is POD #1 from right hip hemiarthroplasty. She has pain at the surgical site as expected. She denies any new complaints including numbness or tingling. She has no calf pain, fever, chills, chest pain or shortness of breath. Objective - Vital Signs Vital signs: Vital Signs Temp 99.1 F 09/08/17 07:41 Pulse 90 09/08/17 08:16 Resp 16 09/08/17 07:41 BP 93/58 09/08/17 07:41 Pulse Ox 93 L 09/08/17 07:41 Intake & Output 09/07/17 09/08/17 09/08/17 18:59 06:59 18:59 Intake Total 1151 1212.5 600 Output Total 350 750 Balance 801 462.5 600 Intake: IV 1151 Intake, IV Titration 862.5 Amount Lactated Ringers 1,000 ml 862.5 @ 75 mls/hr IV .[id number] [facility] Rx#:[id number] Oral 350 600 Output: Urine 200 750 Estimated Blood Loss 150 Other: Voiding Method Indwelling Catheter Indwelling Catheter # Voids 1 - Exam Inspection of the right lower extremity is benign. Surgical wound is benign. No active bleeding. Neurovascular status is grossly intact with motor and sensation throughout the right lower extremity. Calf is soft and nontender. 2 + dorsalis pedis pulse and less than 2 second capillary refill is present distally. - Constitutional General appearance: Present: no acute distress - Psychiatric Psychiatric: Present: A&O x's 3, appropriate affect, intact judgment & insight - Labs CBC & Chem 7: 09/08/17 06:34 09/05/17 07:36 Labs: Abnormal Lab Results - Last 24 Hours (Table) 09/08/17 Range/Units 06:34 Hgb 11.0 L (11.4-16.0) gm/dL Lymphocytes # 0.7 L (1.0-4.8) k/uL Assessment and Plan (1) Closed right hip fracture Narrative/Plan: Continue routine post op orthopedic protocol with pain management, wound care, PT, DVT prophylaxis, and medical management. . Current Visit: Yes Status: Acute Priority: Medium Code(s): S72.001A - FRACTURE OF UNSP PART OF NECK OF RIGHT FEMUR, INIT SNOMED Code(s): 472698958 Time with Patient: Less than 30
[2017-09-08] MEDS: CHOLECALCIFEROL 1,000 UNIT TAB PO SCH (12:10)
[2017-09-08] MEDS: MULTIVITAMINS, THERA 1 EACH TAB PO SCH (12:10)
--- NOTE | 2017-09-08 13:13 | P.PN ---
Subjective Progress Note Date: 09/08/17 This is an 89-year-old pleasant lady patient of Dr. Kevin. She has underlying history of hyperlipidemia, right breast cancer with mastectomy, also arthritis, osteoporosis, treated tuberculosis in [id number], pacemaker placement patient is not aware off the reasoning for the pacemaker, known history of PUD with prior gastric ulcer repair admitted as an outpatient direct admit from the office of Dr. Mandujano. Apparently patient was doing well at home until she fell down from 09/03/2017 while getting out the garbage. Patient complained of pain when she fell down on the right hip, she did not seek any ER intervention at that time and saw Dr. Mandujano in the office on 09/04/2016. The daughter works in the office of Dr. Mandujano and when an x-ray was done she had a subcapital hip fracture for which now she is admitted for surgical intervention to include a right hip hemiarthroplasty. Patient is known to have a pacemaker. Patient denies any syncopal event or neurologic event subsequent to the fall, patient is at baseline mental status alert oriented 3 and is present, without any chest pain shortness of breath, patient denies history of PE DVT CHF or CVA in the past patient denies any respiratory distress. [facility], ambulates with a cane, this would be her first fracture. For Cardiac clearance, we've requested cardiology associates to see the patient as she is known to have a pacemaker, EKG is requested, echocardiogram was requested and the chest x-rays requested, 09/05: Echocardiogram reveals EF of 50-55% with mild concentric left ventricular hypertrophy, currently mildly dilated at 29-33, mild aortic valve sclerosis, mitral regurgitation, mild tricuspid regurgitation, moderate pulmonary hypertension. Cardiology has seen the patient and ordered d-dimer which came back elevated at 2.32, followed by CTA of the chest report is pending. Patient is scheduled for surgery this afternoon. She denies any new complaints. 09/06: CT shows a mass in the medial right apex. Primary or metastatic lesion could be considered. Multiple enlarged mediastinal lymph nodes present. Small right internal mammary artery chain lymph nodes could be considered. Metastatic breast cancer should be considered. Recommend PET scan. No acute pulmonary embolism. Consult added for Dr. Gaming and patient has been cleared for surgery as she needs a surgery done at this time. He is also recommended a CAT scan guided biopsy to be done during this hospitalization which we will plan for on Monday. Patient is scheduled for hip surgery tomorrow. Incentive spirometry and nebulizer treatments added. 09/07: Patient is scheduled for surgery today. Patient is agreeable to undergo CAT scan biopsy of the lung tomorrow which will be scheduled. She may be ready for discharge to [facility] on Monday. No new complaints. Breathing status is stable. Family members are at the bedside and updated. 09/08: Repeat chest x-ray will be ordered. Patient was to have CAT scan guided biopsy today which was canceled by Dr. Lanza and scheduled for possibly Monday. Nursing staff to update orthopedics regarding whether they want patient to stay over the weekend for this or we can proceed as an outpatient. Objective - Vital Signs Vital signs: Vital Signs Temp 99.1 F 09/08/17 07:41 Pulse 82 09/08/17 12:00 Resp 16 09/08/17 07:41 BP 93/58 09/08/17 07:41 Pulse Ox 93 L 09/08/17 07:41 Intake & Output 09/07/17 09/08/17 09/08/17 18:59 06:59 18:59 Intake Total 1151 1212.5 600 Output Total 350 750 Balance 801 462.5 600 Intake: IV 1151 Intake, IV Titration 862.5 Amount Lactated Ringers 1,000 ml 862.5 @ 75 mls/hr IV .[id number] [facility] Rx#:[id number] Oral 350 600 Output: Urine 200 750 Estimated Blood Loss 150 Other: Voiding Method Indwelling Catheter Indwelling Catheter Indwelling Catheter # Voids 1 - Exam General appearance: average body habitus, cooperative, no acute distress - EENT Eyes: anicteric sclerae, EOMI, dentition normal, normal appearance ENT: NA/AT, normal oropharynx - Neck Neck: normal ROM - Respiratory Respiratory: bilateral: CTA, negative: wheezing, prolonged expiration, prolonged inspiration - Cardiovascular Rhythm: regular Heart sounds: normal: S1, S2 Abnormal Heart Sounds: systolic murmur - Gastrointestinal General gastrointestinal: no absent bowel sounds, no decreased bowel sounds, no distended, no hepatomegaly, no hyperactive bowel sounds, normal bowel sounds, no organomegaly, no rigid, no scaphoid, soft, no splenomegaly, no tenderness, no umbilical hernia, no ventral hernia - Integumentary Integumentary: decreased turgor, normal - Neurologic Neurologic: CNII-XII intact - Musculoskeletal Musculoskeletal: strength equal bilaterally (Unable to test gait secondary to right hip fracture) - Psychiatric Psychiatric: A&O x's 3, appropriate affect, intact judgment & insight - Labs CBC & Chem 7: 09/08/17 06:34 09/05/17 07:36 Labs: Abnormal Lab Results - Last 24 Hours (Table) 09/08/17 Range/Units 06:34 Hgb 11.0 L (11.4-16.0) gm/dL Lymphocytes # 0.7 L (1.0-4.8) k/uL Assessment and Plan Plan: 1. Acute right subcapital hip fracture, patient's going to undergo planned surgical intervention for right hemiarthroplasty by Dr. Mandujano once cleared by cardiology, she has an underlying pacemaker for unknown reason, EKG and echocardiogram BNP is requested, should be a class II ASA risk, however EKG is not available for my review, echocardiogram was reviewed without any solid contraindication to proceed with surgery, a separate cardiology recommendation will be made. 2. Known history of breast cancer with right mastectomy 3. Osteoporosis patient would be started on vitamin D to assist with bone: Rate , she would have the formal evaluation as an outpatient for the proposed process treatment 4. Hyperlipidemia without any current statin 5. Prior history of peptic ulcer disease with prior stomach ulcer repair no current symptoms, caution with regards to the use of NSAIDs 6. Prior history off overactive bladder with bladder suspension, urinalysis is negative 7. Prior history of tobacco with no current pulmonary complaints, monitor for any CHF symptoms or COPD symptoms 8. DVT prophylaxis with subcutaneous heparin 9. GI prophylaxis with Pepcid 10. Moderate pulmonary hypertension, with CAT scan finding large mass in the medial right apex invading the chest wall with probable stage IV cancer, questionable source with history of breast cancer. Consult with Dr. Amberly beck. He has cleared the patient for surgery scheduled for tomorrow on the right hip. CAT scan guided biopsy was bone until possibly Monday. Discharge plan: Most likely on Monday. Impression and plan of care have been directed as dictated by the signing physician. Daphnie Mariano nurse practitioner acting as scribe for signing physician.
--- NOTE | 2017-09-08 14:29 | P.PN ---
Subjective Progress Note Date: 09/08/17 Mrs. Truong is a pleasant 89-year-old female with past medical history of permanent pacemaker implantation secondary to complete heart block, osteoarthritis, hypertension and dyslipidemia. She is a former smoker from 1946 -2001. She follows regularly with Dr. Smallwood as an outpatient. We have been asked to see her prior to going for right hip hemiarthroplasty. She apparently had a mechanical fall while taking out her garbage. She denies chest pain, shortness of breath, dizziness, palpitations, nausea, vomiting or diaphoresis prior to falling or afterwards. She seems a bit confused about the fall during my exam. Much of the history is obtained from previous notes. She suffered the fall and presented to her PCP where they did an xray that revealed a fracture of the right subcapital hip fracture. She continues to complain of pain to the right hip and groin region. She is scheduled to undergo surgery this afternoon. She underwent a generator change of her pacemaker in 2011. EKG on arrival reveals a paced rhythm with no acute changes. Echocardiogram was performed and reveals preserved LV function with EF 50-55% with no evidence of hypokinesia, mildly dilated LA, mild aortic valve sclerosis , mild MR, mild TR, moderate pulmonary hypertension wtih RVSP 50.84 mmHg. This is a new finding from former echo performed in the office 2012. Current cardiac medications include aspirin 81 mg daily and simvastatin 20 mg daily. Laboratory data reviewed, hgb 12.6, plt 159, potassium 4.4, proBNP 859. Chest xray is negative for an acute cardiopulmonary process. 09/06/2017 Mrs. Truong is being seen today in follow-up from initial consultation for cardiac clearance for right hip hemiarthroplasty. We ordered at CT angio yesterday to evaluate for possible PE secondary to elevated d-dimer. CTA reveals mass in the medial right apex indicative of possible metastasis possibly secondary to history of breast cancer. Negative for PE. 09/08/2017 She underwent right hip hemiarthroplasty yesterday. She is seen today sitting up in the chair in no acute distress. She complains of mild pain to the right hip and leg that is being treated with pain medication. Lung biopsy is currently on hold secondary to needing to lay on her abdomen. Nursing is attempting to contact ortho to get clearance for this. She continues to deny chest pain, shortness of breath, dizziness, palpitations or nausea/vomiting. Objective - Vital Signs Vital signs: Vital Signs Temp 99.1 F 09/08/17 07:41 Pulse 82 09/08/17 12:00 Resp 16 09/08/17 07:41 BP 93/58 09/08/17 07:41 Pulse Ox 93 L 09/08/17 07:41 Intake & Output 09/07/17 09/08/17 09/08/17 18:59 06:59 18:59 Intake Total 1151 1212.5 600 Output Total 350 750 Balance 801 462.5 600 Intake: IV 1151 Intake, IV Titration 862.5 Amount Lactated Ringers 1,000 ml 862.5 @ 75 mls/hr IV .[id number] [facility] Rx#:[id number] Oral 350 600 Output: Urine 200 750 Estimated Blood Loss 150 Other: Voiding Method Indwelling Catheter Indwelling Catheter Indwelling Catheter # Voids 1 - Exam Blood pressure 93/58 heart rate 88 afebrile GENERAL: Well-appearing, well-nourished and in no acute distress. NECK: Supple without JVD or thyromegaly. LUNGS: Breath sounds clear to auscultation bilaterally. Respiration equal and unlabored. No wheezes, rales or rhonchi. HEART: Regular rate and rhythm with systolic ejection murmur at the base, no rubs or gallops. S1 and S2 heard. EXTREMITIES: Trace nonpitting edema right lower extremity. No clubbing or cyanosis. Peripheral pulses intact and strong. - Labs CBC & Chem 7: 09/08/17 06:34 09/05/17 07:36 Labs: Abnormal Lab Results - Last 24 Hours (Table) 09/08/17 Range/Units 06:34 Hgb 11.0 L (11.4-16.0) gm/dL Lymphocytes # 0.7 L (1.0-4.8) k/uL Assessment and Plan Assessment: ASSESSMENT 1. Fall with subsequent right hip fracture, awaiting right hip josué- arthroplasty this afternoon 2. Permanent pacemaker implantation secondary to complete heart block 3. Dyslipidemia 4. Essential hypertension 5. Peripheral vascular disease 6. History of breast cancer with right mastectomy 7. Chest mass indicative of possible metastasis, new diagnosis 8. Moderate pulmonary hypertension RVSP 50.84mmHg, new diagnosis 9. residential former tobacco use PLAN Continue management per medical team. Mrs. Truong is stable from a cardiac perspective. Follow-up with Dr. Smallwood 4-6 weeks after discharge. He will see her when necessary for the remainder of her hospitalization. Please feel free to call with further questions or concerns. The above impression and plan of care have been discussed and directed by the signing physician. Cherelle Herrera, nurse practitioner, acting as scribe for signing physician.
--- NOTE | 2017-09-08 15:02 | P.PN ---
Subjective Principal diagnosis: Patient status post a right hip surgery tolerated very well breathing comfortably denies any cough or sputum or chest pain Multiple lung masses likely neoplastic process, status post fall with right hip fracture, history of complete heart block status post permanent pacemaker, history of breast cancer status post therapy history of TB in the remote past status post treatment 09/07/2017, patient seen eval reexamined during the rounds she is awake and alert she is nothing by mouth for right hip arthroplasty later on today she is in good spirits breathing comfortably denies any chest pain denies any sputum production she is tolerating breathing treatments well Objective - Vital Signs Vital signs: Vital Signs Temp 99.1 F 09/08/17 07:41 Pulse 82 09/08/17 12:00 Resp 16 09/08/17 07:41 BP 93/58 09/08/17 07:41 Pulse Ox 93 L 09/08/17 07:41 Intake & Output 09/07/17 09/08/17 09/08/17 18:59 06:59 18:59 Intake Total 1151 1212.5 1100 Output Total 350 750 Balance 801 462.5 1100 Intake: IV 1151 Intake, IV Titration 862.5 Amount Lactated Ringers 1,000 ml 862.5 @ 75 mls/hr IV .[id number] [facility] Rx#:[id number] Oral 350 1100 Output: Urine 200 750 Estimated Blood Loss 150 Other: Voiding Method Indwelling Catheter Indwelling Catheter Indwelling Catheter # Voids 1 - Exam - Constitutional General appearance: average body habitus, cooperative, no acute distress - EENT Eyes: EOMI, PERRLA, normal appearance - Neck Neck: normal ROM Carotids: bilateral: upstroke normal, bruit absent Thyroid: bilateral: normal size - Respiratory Respiratory: bilateral: CTA, negative: diminished, dullness, rales, rhonchi, wheezing, prolonged expiration, prolonged inspiration - Cardiovascular Heart sounds: normal: S1, S2 - Gastrointestinal General gastrointestinal: normal bowel sounds, soft - Neurologic Neurologic: CNII-XII intact - Musculoskeletal Musculoskeletal: gait normal, generalized weakness, strength equal bilaterally, however cannot move her right lower extremity which is externally rotated painful to move - Psychiatric Psychiatric: A&O x's 3, appropriate affect, intact judgment & insight - Labs CBC & Chem 7: 09/08/17 06:34 09/05/17 07:36 Labs: Abnormal Lab Results - Last 24 Hours (Table) 09/08/17 Range/Units 06:34 Hgb 11.0 L (11.4-16.0) gm/dL Lymphocytes # 0.7 L (1.0-4.8) k/uL Assessment and Plan Assessment: Right upper lobe spiculated nodular density/mass likely neoplastic process Right anterior thoracic wall/pleural-based 2 mass with invasion to the chest wall 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 Moderate pulmonary hypertension likely related to above l History of breast cancer Right-sided hip fracture History of remote TB back in 60s treated Plan: We will contained patient on breathing treatments, CT-guided biopsy is on hold likely to be performed early next week Sharri is a status post right hip surgery tolerated very well For evaluation of lung mass as discussed with nurse practitioner with Dr. Johns will set her up for CT-guided biopsy after the surgery, it depends upon the postoperative course of the patient if safely can be performed while she is in the hospital proceed with that otherwise will consider doing an a PET scan and a CT on outpatient basis Maintain patient on DVT and peptic ulcer disease prophylaxis continue supportive care will follow Time with Patient: Greater than 30
--- NOTE | 2017-09-08 15:33 | XR ---
EXAMINATION TYPE: XR chest 2V DATE OF EXAM: 09/08/2017 COMPARISON: 09/14 and 09/05/2017 HISTORY: Shortness of breath TECHNIQUE: Frontal and lateral views of the chest are obtained. FINDINGS: The known right apical pulmonary nodules are better appreciated on the prior CT. Pleural p arenchymal biapical scarring is identified. Background pulmonary hyperinflation and flattening of the diaphragms relates to underlying COPD. Right mastectomy is noted. Dual lead left-sided cardiac devic e is present without cardiac enlargement. Surgical clips are seen in the region of the gastroesophage al junction. No focal consolidation, pneumothorax or pleural effusion. No pulmonary vascular congesti on. There is generalized osseous demineralization, exaggerated thoracic kyphosis, and mild multilevel degenerative changes of the thoracic spine. IMPRESSION: 1. No focal consolidation to suggest pneumonia. Radiographic sequela of COPD. 2. The known right apical pulmonary nodule seen on the recent CT are not well visualized radiographic ally.
[2017-09-08] MEDS ORDERED: HYDROmorphone 0.5 MG/0.5 ML SYRINGE IVP PRN ×3 (16:08)
[2017-09-08] MEDS ORDERED: WARFARIN 5 MG TAB PO ONE (18:00)
[2017-09-08] MEDS: SENNOSIDES-DOCUSATE SODIUM 1 EACH TAB PO SCH (21:00)
[2017-09-09] MEDS: IPRATROPIUM-ALBUTEROL 3 ML NEB INHALATION SCH (06:59)
[2017-09-09] MEDS: BUDESONIDE 0.5 MG/2 ML NEBU INHALATION SCH (06:59)
[2017-09-09 07:26] LABS: INR 1.2 (<1.2); Prothrombin Time 11.2 sec (9.0-12.0)
[2017-09-09 08:01] VITALS: BP 96/52; PULSE 97; RESP 17; TEMP 97.1
[2017-09-09] MEDS: LACTATED RINGERS 1,000 ML IV SCH (08:02)
[2017-09-09] MEDS: ARTIFICIAL TEARS-HYPROMELLOSE DROPS 15 ML BTL BOTH EYES SCH (08:03)
[2017-09-09] MEDS: HEPARIN SODIUM,PORCINE 5,000 UNIT/ML 1 ML VIAL SQ SCH (08:03)
[2017-09-09] MEDS: GABAPENTIN 100 MG CAP PO SCH (08:03)
[2017-09-09] MEDS: MULTIVITAMINS, THERA 1 EACH TAB PO SCH (08:04)
[2017-09-09] MEDS: CHOLECALCIFEROL 1,000 UNIT TAB PO SCH (08:04)
[2017-09-09] MEDS: DOCUSATE 100 MG CAP PO SCH (08:04)
[2017-09-09] MEDS: LORATADINE 10 MG TAB PO SCH (08:05)
[2017-09-09] MEDS: FAMOTIDINE 20 MG TAB PO SCH (08:05)
--- NOTE | 2017-09-09 09:32 | P.DS ---
Providers Date of admission: 09/04/17 11:08 Expected date of discharge: 09/09/17 Attending physician: Lalit Mandujano Consults: 09/04/17 11:48 Consult Physician Urgent Consulting Provider: Jai Kevin Consult Reason/Comments: pre op clearance, perioperative medical management Do you want consulting provider notified?: Yes 09/04/17 14:26 Consult Physician Routine Consulting Provider: Prince Estrada Consult Reason/Comments: pmk, cardiac clearance for OR tomorrow Do you want consulting provider notified?: Yes 09/06/17 11:00 Consult Physician Routine Consulting Provider: Jonathan Gaming Consult Reason/Comments: pulmonary nodule Do you want consulting provider notified?: Yes Primary care physician: Jai Kevin - Discharge Diagnosis(es) (1) Closed right hip fracture Current Visit: Yes Status: Acute Priority: Medium Hospital Course: This is a 89-year-old female with known history of femoral neck fracture of the right hip. The patient presents for evaluation. After discussion and consideration patient elects to proceed with right hemiarthroplasty. The patient is seen preoperatively by Dr. Mandujano and cleared for surgery. Patient is admitted to [facility] on 09/04/2017 and right hemiarthroplasty is done on 09/07/2017. The procedures performed without complication or sequelae. The patient is doing well postoperatively. Labs and vital signs are stable on day of discharge. A mass is found in the right lung with the CTA during hospital stay and patient is currently being followed by medicine for this as an outpatient. On day of discharge patient's hip incision is healing well. There is minimal erythema. There is no drainage noted at this time. There is minimal soft tissue swelling to the hip and thigh. Patient has full foot and ankle motion without difficulty or pain. Neurovascular status to the right lower extremity is intact. Patient is discharged to rehab in good condition. Please see med rec for accurate list of home medications. Plan - Discharge Summary Discharge Rx Participant: No New Discharge Prescriptions: New Budesonide [Pulmicort] 0.5 mg INHALATION RT-BID nebu Cholecalciferol [Vitamin D3] 3,000 unit PO DAILY@1200 tab Docusate [Colace] 100 mg PO DAILY cap Famotidine [Pepcid] 20 mg PO DAILY tab HYDROcodone/APAP 5-325MG [[place] 5-325] 1 each PO Q4HR PRN #100 tab PRN Reason: Pain Scale 1 To 5 Ipratropium-Albuterol Nebulize [Duoneb 0.5 mg-3 mg/3 ml Soln] 3 ml INHALATION RT-QID ampul.neb Magnesium Hydroxide [Milk of Magnesia Concentrate] 2,400 mg PO DAILY PRN ml PRN Reason: Constipation Warfarin [Coumadin] 5 mg PO ONCE@1800 tab Continue Simvastatin [Zocor] 20 mg PO HS Multivitamins, Thera [Multivitamin (formulary)] 1 tab PO DAILY Gabapentin [Neurontin] 100 mg PO TID Cetirizine HCl [Zyrtec] 10 mg PO DAILY Carboxymethylcellulose Sodium [Refresh Tears] 1 drop BOTH EYES DAILY Aspirin 81 mg PO DAILY Discharge Medication List Aspirin 81 mg PO DAILY 09/04/17 [History] Carboxymethylcellulose Sodium [Refresh Tears] 1 drop BOTH EYES DAILY 09/04/17 [ History] Cetirizine HCl [Zyrtec] 10 mg PO DAILY 09/04/17 [History] Gabapentin [Neurontin] 100 mg PO TID 09/04/17 [History] Multivitamins, Thera [Multivitamin (formulary)] 1 tab PO DAILY 09/04/17 [History ] Simvastatin [Zocor] 20 mg PO HS 09/04/17 [History] Budesonide [Pulmicort] 0.5 mg INHALATION RT-BID nebu 09/09/17 [Rx] Cholecalciferol [Vitamin D3] 3,000 unit PO DAILY@1200 tab 09/09/17 [Rx] Docusate [Colace] 100 mg PO DAILY cap 09/09/17 [Rx] Famotidine [Pepcid] 20 mg PO DAILY tab 09/09/17 [Rx] HYDROcodone/APAP 5-325MG [[place] 5-325] 1 each PO Q4HR PRN #100 tab 09/09/17 [Rx] Ipratropium-Albuterol Nebulize [Duoneb 0.5 mg-3 mg/3 ml Soln] 3 ml INHALATION RT -QID ampul.neb 09/09/17 [Rx] Magnesium Hydroxide [Milk of Magnesia Concentrate] 2,400 mg PO DAILY PRN ml [Rx] Warfarin [Coumadin] 5 mg PO ONCE@1800 tab 09/09/17 [Rx] Follow up Appointment(s)/Referral(s): Jai Kevin MD [Primary Care Provider] - 1 Week (at [facility]) Jonathan Gaming MD [STAFF PHYSICIAN] - 1 Week Lalit Mandujano MD [STAFF PHYSICIAN] - 10 Days Activity/Diet/Wound Care/Special Instructions: Weightbearing as tolerated with walker May shower after 2 days if no drainage from the incision Continue use if abductor pillow for 6 weeks Follow-up with [facility] in 10-14 days, please call with any questions or concerns, Coumadin 5 mg daily except for Monday and Monday will be 2.5 mg. PT INR on Monday Patient to have CAT scan guided biopsy done on the right apex lung mass as an outpatient once patient is able to lay flat on her stomach. Discharge Disposition: TRANSFER TO SNF/ECF
--- NOTE | 2017-09-09 10:57 | P.PN ---
Subjective Progress Note Date: 09/09/17 This is an 89-year-old pleasant lady patient of Dr. Kevin. She has underlying history of hyperlipidemia, right breast cancer with mastectomy, also arthritis, osteoporosis, treated tuberculosis in [id number], pacemaker placement patient is not aware off the reasoning for the pacemaker, known history of PUD with prior gastric ulcer repair admitted as an outpatient direct admit from the office of Dr. Mandujano. Apparently patient was doing well at home until she fell down from 09/03/2017 while getting out the garbage. Patient complained of pain when she fell down on the right hip, she did not seek any ER intervention at that time and saw Dr. Mandujano in the office on 09/04/2016. The daughter works in the office of Dr. Mandujano and when an x-ray was done she had a subcapital hip fracture for which now she is admitted for surgical intervention to include a right hip hemiarthroplasty. Patient is known to have a pacemaker. Patient denies any syncopal event or neurologic event subsequent to the fall, patient is at baseline mental status alert oriented 3 and is present, without any chest pain shortness of breath, patient denies history of PE DVT CHF or CVA in the past patient denies any respiratory distress. [facility], ambulates with a cane, this would be her first fracture. For Cardiac clearance, we've requested cardiology associates to see the patient as she is known to have a pacemaker, EKG is requested, echocardiogram was requested and the chest x-rays requested, 09/05: Echocardiogram reveals EF of 50-55% with mild concentric left ventricular hypertrophy, currently mildly dilated at 29-33, mild aortic valve sclerosis, mitral regurgitation, mild tricuspid regurgitation, moderate pulmonary hypertension. Cardiology has seen the patient and ordered d-dimer which came back elevated at 2.32, followed by CTA of the chest report is pending. Patient is scheduled for surgery this afternoon. She denies any new complaints. 09/06: CT shows a mass in the medial right apex. Primary or metastatic lesion could be considered. Multiple enlarged mediastinal lymph nodes present. Small right internal mammary artery chain lymph nodes could be considered. Metastatic breast cancer should be considered. Recommend PET scan. No acute pulmonary embolism. Consult added for Dr. Gaming and patient has been cleared for surgery as she needs a surgery done at this time. He is also recommended a CAT scan guided biopsy to be done during this hospitalization which we will plan for on Monday. Patient is scheduled for hip surgery tomorrow. Incentive spirometry and nebulizer treatments added. 09/07: Patient is scheduled for surgery today. Patient is agreeable to undergo CAT scan biopsy of the lung tomorrow which will be scheduled. She may be ready for discharge to [facility] on Monday. No new complaints. Breathing status is stable. Family members are at the bedside and updated. 09/08: Repeat chest x-ray will be ordered. Patient was to have CAT scan guided biopsy today which was canceled by Dr. Lanza and scheduled for possibly Monday. Nursing staff to update orthopedics regarding whether they want patient to stay over the weekend for this or we can proceed as an outpatient. 09/09: At has been decided that patient will be discharged to [facility] today she was start rehab and when she is more stable, back for biopsy of the lung. Medication reconciliation completed. Patient is being discharged to [facility] under the care of Dr. Kevin. Objective - Vital Signs Vital signs: Vital Signs Temp 97.1 F L 09/09/17 08:01 Pulse 97 09/09/17 08:01 Resp 17 09/09/17 08:01 BP 96/52 09/09/17 08:01 Pulse Ox 92 L 09/09/17 08:01 Intake & Output 09/08/17 09/09/17 09/09/17 18:59 06:59 18:59 Intake Total 2300 462.5 Output Total 300 Balance 2000 462.5 Intake: Intake, IV Titration 262.5 Amount Lactated Ringers 1,000 ml 262.5 @ 75 mls/hr IV .[id number] [facility] Rx#:[id number] Oral 2300 200 Output: Urine 300 Uretheral (Hall) 300 Other: Voiding Method Indwelling Catheter Bedpan # Voids 1 - Exam General appearance: average body habitus, cooperative, no acute distress - EENT Eyes: anicteric sclerae, EOMI, dentition normal, normal appearance ENT: NA/AT, normal oropharynx - Neck Neck: normal ROM - Respiratory Respiratory: bilateral: CTA, negative: wheezing, prolonged expiration, prolonged inspiration - Cardiovascular Rhythm: regular Heart sounds: normal: S1, S2 Abnormal Heart Sounds: systolic murmur - Gastrointestinal General gastrointestinal: no absent bowel sounds, no decreased bowel sounds, no distended, no hepatomegaly, no hyperactive bowel sounds, normal bowel sounds, no organomegaly, no rigid, no scaphoid, soft, no splenomegaly, no tenderness, no umbilical hernia, no ventral hernia - Integumentary Integumentary: decreased turgor, normal - Neurologic Neurologic: CNII-XII intact - Musculoskeletal Musculoskeletal: strength equal bilaterally (Unable to test gait secondary to right hip fracture) - Psychiatric Psychiatric: A&O x's 3, appropriate affect, intact judgment & insight - Labs CBC & Chem 7: 09/08/17 06:34 09/05/17 07:36 Labs: Abnormal Lab Results - Last 24 Hours (Table) 09/09/17 Range/Units 07:01 INR 1.2 H (<1.2) Assessment and Plan Plan: 1. Acute right subcapital hip fracture, status post right hemiarthroplasty. Patient is on Coumadin for DVT prophylaxis. 2. Known history of breast cancer with right mastectomy 3. Osteoporosis patient would be started on vitamin D to assist with bone: Rate , she would have the formal evaluation as an outpatient for the proposed process treatment 4. Hyperlipidemia without any current statin 5. Prior history of peptic ulcer disease with prior stomach ulcer repair no current symptoms, caution with regards to the use of NSAIDs 6. Prior history off overactive bladder with bladder suspension, urinalysis is negative 7. Prior history of tobacco with no current pulmonary complaints, monitor for any CHF symptoms or COPD symptoms 8. DVT prophylaxis with subcutaneous heparin 9. GI prophylaxis with Pepcid 10. Moderate pulmonary hypertension, with CAT scan finding large mass in the medial right apex invading the chest wall with probable stage IV cancer, questionable source with history of breast cancer. Consult with Dr. Amberly beck. He has cleared the patient for surgery scheduled for tomorrow on the right hip. CAT scan guided biopsy was bone until possibly Monday. Discharge plan: on Monday. Impression and plan of care have been directed as dictated by the signing physician. Daphnie Mariano nurse practitioner acting as scribe for signing physician.
[2017-09-09] MEDS ORDERED: WARFARIN 5 MG TAB PO ONE (18:00)
== END 2017-09-09 10:37 | DRG 470 ==
LOC: 3SUR 11:08
PROVIDERS: ADMIT Orthopaedic Surgery Sports Medicine; ATTEND Orthopaedic Surgery Sports Medicine
PROC: 0SRR0JA Replacement of Right Hip Joint, Femoral Surface with Synthetic Substitute, Uncemented, Open Approach (ICD-10-PCS; principal; 2017-09-04)
DX: S72.011A Unspecified intracapsular fracture of right femur, initial encounter for closed fracture (principal); I44.2 Atrioventricular block, complete; I27.20 Pulmonary hypertension, unspecified; I08.3 Combined rheumatic disorders of mitral, aortic and tricuspid valves; I73.9 Peripheral vascular disease, unspecified; E78.5 Hyperlipidemia, unspecified; M81.0 Age-related osteoporosis without current pathological fracture; W01.0XXA Fall on same level from slipping, tripping and stumbling without subsequent striking against object, initial encounter; Z79.82 Long term (current) use of aspirin; Z79.899 Other long term (current) drug therapy; Z80.1 Family history of malignant neoplasm of trachea, bronchus and lung; Z82.49 Family history of ischemic heart disease and other diseases of the circulatory system; Z85.3 Personal history of malignant neoplasm of breast; Z86.11 Personal history of tuberculosis; I10 Essential (primary) hypertension; J43.9 Emphysema, unspecified; Z87.11 Personal history of peptic ulcer disease; Z87.891 Personal history of nicotine dependence; Z90.11 Acquired absence of right breast and nipple; Z90.710 Acquired absence of both cervix and uterus; Z95.0 Presence of cardiac pacemaker
CPT/HCPCS: 71045; 71046; 71275; 73501; 73502; 80048; 81001; 82550; 83880; 85025; 85379; 85610; 85730; 86850; 86900; 86901; 88305; 88311; 93005; 93306; 94640; 94760